=== PATIENT | female | born 1935 | race Caucasian/White ===

== ENCOUNTER 2017-04-14 14:42 | Inpatient (IN) | payer MEDICARE, BC ==
[~2017-04-14] VITALS: Ht 162.6 cm; Wt 70.3 kg
[2017-04-14 15:40] LABS: BASO # 0.1 x10^3/uL (0.0-0.2); BASO % 1 % (0-3); EOS # 0.3 x10^3/uL (0.0-0.7); EOS % 4 % (0-3); HEMATOCRIT 38.5 % (36.0-47.0); HEMOGLOBIN 13.2 g/dL (12.0-15.5); LYMPH % 29 % (24-48); MEAN CORPUSCULAR HEMOGLOBIN 29 pg (25-35); MEAN CORPUSCULAR HGB CONC 34 g/dL (31-37); MEAN CORPUSCULAR VOLUME 86 fL (79-100); MONO # 0.4 x10^3/uL (0.0-1.1); MONO % 6 % (0-9); NEUT # 4.1 x10^3uL (1.8-7.7); NEUT % 60 % (31-73); PLATELET COUNT 187 x10^3/uL (140-400); RED BLOOD COUNT 4.49 x10^6/uL (3.50-5.40); WHITE BLOOD COUNT 6.8 x10^3/uL (4.0-11.0)
[2017-04-14 15:44] LABS: BILIRUBIN,URINE NEG (NEG); CLARITY,URINE TURBID; COLOR,URINE YELLOW; GLUCOSE,URINE NEG (NEG)
[2017-04-14 15:45] LABS: BACTERIA,URINE MOD /HPF (0-FEW); NITRITE,URINE NEG (NEG); RBC,URINE 20-40 /HPF (0-2); SQUAMOUS EPITHELIAL CELL,UR FEW /LPF; UROBILINOGEN,URINE 0.2 mg/dL (0.2 mg/dL); WBC,URINE >40 /HPF (0-4)
[2017-04-14 15:48] LABS: ALBUMIN 3.3 g/dL (3.4-5.0); ALBUMIN/GLOBULIN RATIO 1.1 (1.0-1.7); CREATININE 1.6 mg/dL (0.6-1.0); GFR 30.8; MAGNESIUM 1.7 mg/dL (1.8-2.4); POTASSIUM 3.7 mmol/L (3.5-5.1); TOTAL BILIRUBIN 0.7 mg/dL (0.2-1.0); TOTAL PROTEIN 6.4 g/dL (6.4-8.2)
--- NOTE | 2017-04-14 15:48 | EKG ---
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
[2017-04-14] MEDS ORDERED: CIPROFLOXACIN HCL 500 MG TABLET PO ONE (17:15)
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
[2017-04-14] MEDS ORDERED: BENA40TA2 PO (22:25)
[2017-04-14] MEDS ORDERED: LOPE2CAP88 PO (22:25)
[2017-04-14] MEDS ORDERED: INSU100I17 SQ (22:25)
[2017-04-14] MEDS ORDERED: CELE100C PO (22:25)
[2017-04-14] MEDS ORDERED: INSU100I13 SQ (22:25)
[2017-04-14] MEDS ORDERED: ASPI325T11 PO (22:25)
[2017-04-14] MEDS ORDERED: NYST15PO9 TP (22:25)
[2017-04-14] MEDS ORDERED: HYDR12.58 PO (22:25)
[2017-04-14] MEDS ORDERED: AMLO10TA2 PO (22:25)
[2017-04-14] MEDS ORDERED: ATEN50TA PO (22:25)
[2017-04-14] MEDS ORDERED: DONE10TA7 PO (22:25)
[2017-04-14] MEDS ORDERED: MAG HYDROX/AL HYDROX/SIMETH 30 ML ORAL.SUSP PO PRN (23:00)
[2017-04-14] MEDS ORDERED: METHYL SALICYLATE/MENTHOL TOPICAL OINTMENT 29GM TUBE. TP PRN (23:00)
[2017-04-14] MEDS ORDERED: ACETAMINOPHEN 325 MG TABLET PO PRN (23:00)
[2017-04-14] MEDS ORDERED: MAGNESIUM HYDROXIDE 2,400 MG/30 ML ORAL.SUSP. PO PRN (23:00)
[2017-04-14 23:15] VITALS: BP 172/88
[2017-04-15] MEDS: CIPROFLOXACIN HCL 250 MG TABLET PO SCH ×2 (05:29→17:40)
[2017-04-15 06:18] VITALS: BP 177/75
[2017-04-15] MEDS ORDERED: LOPERAMIDE 2 MG CAPSULE PO PRN (06:45)
[2017-04-15] MEDS ORDERED: NYSTATIN TOPICAL POWDER 15GM BOTTLE. TP PRN (06:45)
[2017-04-15] MEDS: ATENOLOL 50 MG TABLET PO SCH ×2 (09:00→19:33)
[2017-04-15] MEDS ORDERED: CELECOXIB 100 MG CAPSULE PO SCH (09:00)
[2017-04-15] MEDS: INSULIN ASPART 300 UNITS/3 ML INSULN.PEN SQ SCH ×4 (09:02→19:48)
[2017-04-15 09:21] VITALS: BP 155/61
[2017-04-15] MEDS: amLODIPine BESYLATE 10 MG TABLET PO SCH (09:27)
[2017-04-15] MEDS: LISINOPRIL 20 MG TABLET PO SCH (09:27)
[2017-04-15] MEDS: hydroCHLOROthiazide 12.5 MG CAPSULE PO SCH (09:27)
[2017-04-15] MEDS: ASPIRIN ENTERIC COATED 325 MG TABLET.DR. PO SCH (09:27)
[2017-04-15] MEDS: LACTOBACILLUS RHAMNOSUS GG 1 CAPSULE. PO SCH ×2 (09:28→19:32)
[2017-04-15 16:10] VITALS: BP 184/74
[2017-04-15] MEDS: cloNIDine TTS-1 1 PATCH PATCH TD SCH (16:22)
[2017-04-15] MEDS ORDERED: DEXTROSE 50% 25 GM / 50ML DISP.SYRIN. IV PRN (17:00)
--- NOTE | 2017-04-15 19:05 | PDOC ---
Exam Note: Amaury Note: Please also refer to the separate dictated note~for this date of service dictated separately.~Patient seen individually. Discussed the patient with Nursing staff reviewed the chart.~Reviewed interim history and current functioning. Reviewed vital signs,~Labs/ Radiology~and current medications noted below. Continue current treatment with the changes noted in the dictated addendum note Assessment: Vital Signs: Vital Signs Date Time Temp Pulse Resp B/P (MAP) Pulse Ox O2 Delivery O2 Flow Rate FiO2 04/15/17 16:10 98.0 57 20 184/74 (110) 98 04/14/17 14:55 Room Air I&O Intake and Output 04/15/17 06:59 # Voids 1 # Bowel Movements 1 Labs: Laboratory Tests Test 04/15/17 08:58 04/15/17 11:28 04/15/17 15:55 Glucose (Fingerstick) 241 mg/dL (70-99) H 213 mg/dL (70-99) H 275 mg/dL (70-99) H Current Medications: Meds: Current Medications Ciprofloxacin (Cipro) 500 mg 1X ONCE PO Last administered on 04/14/17at 17:25; Start 04/14/17 at 17:15; Stop 04/14/17 at 17:16; Status DC Donepezil HCl (Aricept) 10 mg HS PO ; Start 04/15/17 at 21:00 Acetaminophen (Tylenol) 650 mg PRN Q6HRS PRN PO PAIN / TEMP; Start 04/14/17 at 23:00 Multi-Ingredient Ointment (Analgesic [place]) 1 gricel PRN QID PRN TP MUSCLE PAIN; Start 04/14/17 at 23:00 Al Hydroxide/Mg Hydroxide (Mylanta Plus Xs) 15 ml PRN AFTMEALHC PRN PO DYSPEPSIA; Start 04/14/17 at 23:00 Magnesium Hydroxide (Milk Of Magnesia) 2,400 mg PRN QHS PRN PO CONSTIPATION; Start 04/14/17 at 23:00 Ciprofloxacin (Cipro) 250 mg BID66 PO Last administered on 04/15/17at 17:40; Start 04/15/17 at 06:00; Stop 04/20/17 at 05:59 Lactobacillus Rhamnosus (Culturelle) 1 cap BID PO Last administered on at 09:28; Start 04/15/17 at 09:00 Amlodipine Besylate (Norvasc) 10 mg DAILY PO Last administered on 04/15/17at 09: 27; Start 04/15/17 at 09:00 Aspirin (Aspirin Enteric Coated) 325 mg DAILY PO Last administered on 04/15/17at 09:27; Start 04/15/17 at 09:00 Atenolol (Tenormin) 50 mg BID PO ; Start 04/15/17 at 09:00 Celecoxib (CeleBREX) 100 mg DAILY PO Last administered on 04/15/17at 09:30; Start 04/15/17 at 09:00; Stop 04/15/17 at 15:47; Status DC Insulin Aspart (NovoLOG) 6 units TIDWMEALS SQ Last administered on 04/15/17at 12: 18; Start 04/15/17 at 08:00; Stop 04/15/17 at 16:59; Status DC Loperamide HCl (Imodium) 2 mg PRN Q6HRS PRN PO DIARRHEA; Start 04/15/17 at 06:45 Nystatin (Nystop) 1 gricel PRN Q12HR PRN TP excoriation; Start 04/15/17 at 06:45 Lisinopril (Prinivil) 40 mg DAILY PO Last administered on 04/15/17at 09:27; Start 04/15/17 at 09:00 Hydrochlorothiazide (Microzide) 12.5 mg DAILY PO Last administered on 04/15/17at 09:27; Start 04/15/17 at 09:00 Insulin Detemir (Levemir) 45 units QHS SQ ; Start 04/15/17 at 21:00 Clonidine HCl (Catapres Tts-1) 1 patch WEEKLY TD Last administered on 04/15/17at 16:22; Start 04/15/17 at 16:00 Insulin Aspart (NovoLOG) 8 units TIDWMEALS SQ Last administered on 04/15/17at 17: 16; Start 04/15/17 at 17:00 Insulin Aspart (NovoLOG) 0-5 UNITS QIDACHS SQ ; Start 04/15/17 at 21:00 Dextrose 12.5 gm PRN Q15MIN PRN IV SEE COMMENTS; Start 04/15/17 at 17:00 Sertraline HCl (Zoloft) 25 mg DAILY PO ; Start 04/16/17 at 09:00 Mirtazapine (Remeron) 7.5 mg QHS PO ; Start 04/15/17 at 21:00 Active Scripts Active Reported Nystatin 15 Gm Powder 1 Gricel TP PRN Q12HR PRN Novolog Flexpen (Insulin Aspart) 100 Unit/1 Ml Insuln.pen 6 Unit SQ TIDWMEALS Lantus Solostar (Insulin Glargine,Hum.rec.anlog) 100 Unit/1 Ml Insuln.pen 45 Unit SQ HS Imodium A-D (Loperamide HCl) 2 Mg Capsule 2 Mg PO PRN Q6HRS PRN Hydrochlorothiazide Tablet (Hydrochlorothiazide) 12.5 Mg Tablet 12.5 Mg PO DAILY Donepezil Hcl 10 Mg Tablet 10 Mg PO HS Celebrex (Celecoxib) 100 Mg Capsule 100 Mg PO DAILY Benazepril Hcl 40 Mg Tablet 40 Mg PO DAILY Atenolol 50 Mg Tablet 50 Mg PO BID Aspirin Ec (Aspirin) 325 Mg Tablet.dr 325 Mg PO DAILY Amlodipine Besylate 10 Mg Tablet 10 Mg PO DAILY I have reviewed the current psychotropics carefully including drug interactions. Risk benefit ratio favors no change other than as noted in my dictated progress note. Diagnosis: Problems: (1) Anxiety disorder (2) Dementia in Alzheimer's disease with delusions (3) Dementia in Alzheimer's disease with depression (4) Dementia, vascular, with depression (5) Dementia, vascular, with delusions (6) Impulse control disorder ROSS CONDE MD Apr 15, 2017 19:05
[2017-04-15] MEDS: MIRTAZAPINE 7.5 MG TABLET. PO SCH (19:35)
[2017-04-15] MEDS: DONEPEZIL HCL 10 MG TABLET PO SCH (19:43)
[2017-04-15] MEDS ORDERED: INSULIN ASPART 300 UNITS/3 ML INSULN.PEN SQ ONE (19:45)
[2017-04-15] MEDS: INSULIN DETEMIR 300 UNITS/3 ML INSULN.PEN. SQ SCH (19:47)
[2017-04-15 19:54] LABS: THYROID STIM HORMONE (TSH) 3.46 uIU/mL (0.358-3.740)
--- NOTE | 2017-04-15 20:09 | PDOC ---
Exam Note: Amaury Note: Please also refer to the separate dictated note~for this date of service dictated separately.~Patient seen individually. Discussed the patient with Nursing staff reviewed the chart.~Reviewed interim history and current functioning. Reviewed vital signs,~Labs/ Radiology~and current medications noted below. Continue current treatment with the changes noted in the dictated addendum note Assessment: Vital Signs: Vital Signs Date Time Temp Pulse Resp B/P (MAP) Pulse Ox O2 Delivery O2 Flow Rate FiO2 04/15/17 19:33 57 184/74 04/15/17 16:10 98.0 20 98 04/14/17 14:55 Room Air I&O Intake and Output 04/15/17 07:00 # Voids 1 # Bowel Movements 1 Labs: Laboratory Tests Test 04/15/17 08:58 04/15/17 11:28 04/15/17 15:55 04/15/17 19:08 Glucose (Fingerstick) 241 mg/dL (70-99) H 213 mg/dL (70-99) H 275 mg/dL (70-99) H 278 mg/dL (70-99) H Current Medications: Meds: Current Medications Ciprofloxacin (Cipro) 500 mg 1X ONCE PO Last administered on 04/14/17at 17:25; Start 04/14/17 at 17:15; Stop 04/14/17 at 17:16; Status DC Donepezil HCl (Aricept) 10 mg HS PO Last administered on 04/15/17at 19:43; Start 04/15/17 at 21:00 Acetaminophen (Tylenol) 650 mg PRN Q6HRS PRN PO PAIN / TEMP; Start 04/14/17 at 23:00 Multi-Ingredient Ointment (Analgesic [place]) 1 gricel PRN QID PRN TP MUSCLE PAIN; Start 04/14/17 at 23:00 Al Hydroxide/Mg Hydroxide (Mylanta Plus Xs) 15 ml PRN AFTMEALHC PRN PO DYSPEPSIA; Start 04/14/17 at 23:00 Magnesium Hydroxide (Milk Of Magnesia) 2,400 mg PRN QHS PRN PO CONSTIPATION; Start 04/14/17 at 23:00 Ciprofloxacin (Cipro) 250 mg BID66 PO Last administered on 04/15/17at 17:40; Start 04/15/17 at 06:00; Stop 04/20/17 at 05:59 Lactobacillus Rhamnosus (Culturelle) 1 cap BID PO Last administered on at 19:32; Start 04/15/17 at 09:00 Amlodipine Besylate (Norvasc) 10 mg DAILY PO Last administered on 04/15/17at 09: 27; Start 04/15/17 at 09:00 Aspirin (Aspirin Enteric Coated) 325 mg DAILY PO Last administered on 04/15/17 09:27; Start 04/15/17 at 09:00 Atenolol (Tenormin) 50 mg BID PO Last administered on 04/15/17 19:33; Start 04/15/17 at 09:00 Celecoxib (CeleBREX) 100 mg DAILY PO Last administered on 04/15/17 09:30; Start 04/15/17 at 09:00; Stop 04/15/17 at 15:47; Status DC Insulin Aspart (NovoLOG) 6 units TIDWMEALS SQ Last administered on 04/15/17 12: 18; Start 04/15/17 at 08:00; Stop 04/15/17 at 16:59; Status DC Loperamide HCl (Imodium) 2 mg PRN Q6HRS PRN PO DIARRHEA; Start 04/15/17 at 06:45 Nystatin (Nystop) 1 gricel PRN Q12HR PRN TP excoriation; Start 04/15/17 at 06:45 Lisinopril (Prinivil) 40 mg DAILY PO Last administered on 04/15/17at 09:27; Start 04/15/17 at 09:00 Hydrochlorothiazide (Microzide) 12.5 mg DAILY PO Last administered on 04/15/17 09:27; Start 04/15/17 at 09:00 Insulin Detemir (Levemir) 45 units QHS SQ Last administered on 04/15/17at 19:47; Start 04/15/17 at 21:00 Clonidine HCl (Catapres Tts-1) 1 patch WEEKLY TD Last administered on 04/15/17 16:22; Start 04/15/17 at 16:00 Insulin Aspart (NovoLOG) 8 units TIDWMEALS SQ Last administered on 04/15/17 17: 16; Start 04/15/17 at 17:00 Insulin Aspart (NovoLOG) 0-5 UNITS QIDACHS SQ ; Start 04/15/17 at 21:00 Dextrose 12.5 gm PRN Q15MIN PRN IV SEE COMMENTS; Start 04/15/17 at 17:00 Sertraline HCl (Zoloft) 25 mg DAILY PO ; Start 04/16/17 at 09:00 Mirtazapine (Remeron) 7.5 mg QHS PO Last administered on 04/15/17at 19:35; Start 04/15/17 at 21:00 Insulin Aspart (NovoLOG) 15 units 1X ONCE SQ Last administered on 04/15/17at 19: 45; Start 04/15/17 at 19:45; Stop 04/15/17 at 19:46; Status DC Active Scripts Active Reported Nystatin 15 Gm Powder 1 Gricel TP PRN Q12HR PRN Novolog Flexpen (Insulin Aspart) 100 Unit/1 Ml Insuln.pen 6 Unit SQ TIDWMEALS Lantus Solostar (Insulin Glargine,Hum.rec.anlog) 100 Unit/1 Ml Insuln.pen 45 Unit SQ HS Imodium A-D (Loperamide HCl) 2 Mg Capsule 2 Mg PO PRN Q6HRS PRN Hydrochlorothiazide Tablet (Hydrochlorothiazide) 12.5 Mg Tablet 12.5 Mg PO DAILY Donepezil Hcl 10 Mg Tablet 10 Mg PO HS Celebrex (Celecoxib) 100 Mg Capsule 100 Mg PO DAILY Benazepril Hcl 40 Mg Tablet 40 Mg PO DAILY Atenolol 50 Mg Tablet 50 Mg PO BID Aspirin Ec (Aspirin) 325 Mg Tablet. 325 Mg PO DAILY Amlodipine Besylate 10 Mg Tablet 10 Mg PO DAILY I have reviewed the current psychotropics carefully including drug interactions. Risk benefit ratio favors no change other than as noted in my dictated progress note. Diagnosis: Problems: (1) Dementia (2) Anxiety disorder (3) Impulse control disorder (4) Dementia, vascular, with depression (5) Dementia, vascular, with delusions (6) Dementia in Alzheimer's disease with depression (7) Dementia in Alzheimer's disease with delusions ROSS CONDE MD Apr 15, 2017 20:09
[2017-04-15 20:11] LABS: T3 TOTAL 105 ng/dL (71-180)
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
[2017-04-16 03:13] LABS: HEMOGLOBIN A1C 7.6 % (4.8-5.6)
[2017-04-16] MEDS: CIPROFLOXACIN HCL 250 MG TABLET PO SCH ×2 (05:30→17:41)
[2017-04-16 06:22] VITALS: BP 165/53
[2017-04-16] MEDS: INSULIN ASPART 300 UNITS/3 ML INSULN.PEN SQ SCH ×7 (07:30→19:25)
[2017-04-16] MEDS: ASPIRIN ENTERIC COATED 325 MG TABLET.DR. PO SCH (08:51)
[2017-04-16 08:52] VITALS: BP 133/73
[2017-04-16] MEDS: LACTOBACILLUS RHAMNOSUS GG 1 CAPSULE. PO SCH ×2 (08:52→19:08)
[2017-04-16] MEDS: SERTRALINE 25 MG TABLET. PO SCH (08:52)
[2017-04-16] MEDS: LISINOPRIL 20 MG TABLET PO SCH (08:53)
[2017-04-16] MEDS: amLODIPine BESYLATE 10 MG TABLET PO SCH (08:53)
[2017-04-16] MEDS: hydroCHLOROthiazide 12.5 MG CAPSULE PO SCH (08:54)
[2017-04-16] MEDS: ATENOLOL 50 MG TABLET PO SCH ×2 (08:54→19:13)
[2017-04-16 16:15] VITALS: BP 177/72
[2017-04-16] MEDS: DONEPEZIL HCL 10 MG TABLET PO SCH (19:08)
[2017-04-16] MEDS: MIRTAZAPINE 7.5 MG TABLET. PO SCH (19:13)
[2017-04-16] MEDS: INSULIN DETEMIR 300 UNITS/3 ML INSULN.PEN. SQ SCH (19:20)
--- NOTE | 2017-04-16 19:50 | PDOC ---
Exam Note: Amaury Note: Please also refer to the separate dictated note~for this date of service dictated separately.~Patient seen individually. Discussed the patient with Nursing staff reviewed the chart.~Reviewed interim history and current functioning. Reviewed vital signs,~Labs/ Radiology~and current medications noted below. Continue current treatment with the changes noted in the dictated addendum note Assessment: Vital Signs: Vital Signs Date Time Temp Pulse Resp B/P (MAP) Pulse Ox O2 Delivery O2 Flow Rate FiO2 04/16/17 19:13 56 177/72 04/16/17 16:15 98.0 20 96 04/14/17 14:55 Room Air I&O Intake and Output 04/16/17 07:00 Intake Total 1680 ml Balance 1680 ml Intake Oral 1680 ml Labs: Laboratory Tests Test 04/16/17 07:14 04/16/17 11:29 04/16/17 17:15 04/16/17 19:10 Glucose (Fingerstick) 102 mg/dL (70-99) H 77 mg/dL (70-99) 98 mg/dL (70-99) 141 mg/dL (70-99) H Current Medications: Meds: Current Medications Ciprofloxacin (Cipro) 500 mg 1X ONCE PO Last administered on 04/14/17at 17:25; Start 04/14/17 at 17:15; Stop 04/14/17 at 17:16; Status DC Donepezil HCl (Aricept) 10 mg HS PO Last administered on 04/16/17at 19:08; Start 04/15/17 at 21:00 Acetaminophen (Tylenol) 650 mg PRN Q6HRS PRN PO PAIN / TEMP; Start 04/14/17 at 23:00 Multi-Ingredient Ointment (Analgesic [place]) 1 gricel PRN QID PRN TP MUSCLE PAIN; Start 04/14/17 at 23:00 Al Hydroxide/Mg Hydroxide (Mylanta Plus Xs) 15 ml PRN AFTMEALHC PRN PO DYSPEPSIA; Start 04/14/17 at 23:00 Magnesium Hydroxide (Milk Of Magnesia) 2,400 mg PRN QHS PRN PO CONSTIPATION; Start 04/14/17 at 23:00 Ciprofloxacin (Cipro) 250 mg BID66 PO Last administered on 04/16/17at 17:41; Start 04/15/17 at 06:00; Stop 04/20/17 at 05:59 Lactobacillus Rhamnosus (Culturelle) 1 cap BID PO Last administered on at 19:08; Start 04/15/17 at 09:00 Amlodipine Besylate (Norvasc) 10 mg DAILY PO Last administered on 04/16/17at 08: 53; Start 04/15/17 at 09:00 Aspirin (Aspirin Enteric Coated) 325 mg DAILY PO Last administered on at 08:51; Start 04/15/17 at 09:00 Atenolol (Tenormin) 50 mg BID PO Last administered on 04/16/17 19:13; Start at 09:00 Celecoxib (CeleBREX) 100 mg DAILY PO Last administered on 04/15/17at 09:30; Start 04/15/17 at 09:00; Stop 04/15/17 at 15:47; Status DC Insulin Aspart (NovoLOG) 6 units TIDWMEALS SQ Last administered on 04/15/17at 12: 18; Start 04/15/17 at 08:00; Stop 04/15/17 at 16:59; Status DC Loperamide HCl (Imodium) 2 mg PRN Q6HRS PRN PO DIARRHEA; Start 04/15/17 at 06:45 Nystatin (Nystop) 1 gricel PRN Q12HR PRN TP excoriation; Start 04/15/17 at 06:45 Lisinopril (Prinivil) 40 mg DAILY PO Last administered on 04/16/17at 08:53; Start 04/15/17 at 09:00 Hydrochlorothiazide (Microzide) 12.5 mg DAILY PO Last administered on at 08:54; Start 04/15/17 at 09:00; Stop 04/16/17 at 17:04; Status DC Insulin Detemir (Levemir) 45 units QHS SQ Last administered on 04/16/17 19:20 ; Start 04/15/17 at 21:00 Clonidine HCl (Catapres Tts-1) 1 patch WEEKLY TD Last administered on 04/15/17 16:22; Start 04/15/17 at 16:00 Insulin Aspart (NovoLOG) 8 units TIDWMEALS SQ Last administered on 04/16/17at 17 :22; Start 04/15/17 at 17:00 Insulin Aspart (NovoLOG) 0-5 UNITS QIDACHS SQ ; Start 04/15/17 at 21:00 Dextrose 12.5 gm PRN Q15MIN PRN IV SEE COMMENTS; Start 04/15/17 at 17:00 Sertraline HCl (Zoloft) 25 mg DAILY PO Last administered on 04/16/17at 08:52; Start 04/16/17 at 09:00 Mirtazapine (Remeron) 7.5 mg QHS PO Last administered on 04/16/17at 19:13; Start 04/15/17 at 21:00 Insulin Aspart (NovoLOG) 15 units 1X ONCE SQ Last administered on 04/15/17at 19: 45; Start 04/15/17 at 19:45; Stop 04/15/17 at 19:46; Status DC Furosemide (Lasix) 20 mg DAILY PO ; Start 04/17/17 at 09:00 Active Scripts Active Reported Nystatin 15 Gm Powder 1 Gricel TP PRN Q12HR PRN Novolog Flexpen (Insulin Aspart) 100 Unit/1 Ml Insuln.pen 6 Unit SQ TIDWMEALS Lantus Solostar (Insulin Glargine,Hum.rec.anlog) 100 Unit/1 Ml Insuln.pen 45 Unit SQ HS Imodium A-D (Loperamide HCl) 2 Mg Capsule 2 Mg PO PRN Q6HRS PRN Hydrochlorothiazide Tablet (Hydrochlorothiazide) 12.5 Mg Tablet 12.5 Mg PO DAILY Donepezil Hcl 10 Mg Tablet 10 Mg PO HS Celebrex (Celecoxib) 100 Mg Capsule 100 Mg PO DAILY Benazepril Hcl 40 Mg Tablet 40 Mg PO DAILY Atenolol 50 Mg Tablet 50 Mg PO BID Aspirin Ec (Aspirin) 325 Mg Tablet. 325 Mg PO DAILY Amlodipine Besylate 10 Mg Tablet 10 Mg PO DAILY I have reviewed the current psychotropics carefully including drug interactions. Risk benefit ratio favors no change other than as noted in my dictated progress note. Diagnosis: Problems: (1) Dementia (2) Anxiety disorder (3) Impulse control disorder (4) Dementia, vascular, with depression (5) Dementia, vascular, with delusions (6) Dementia in Alzheimer's disease with depression (7) Dementia in Alzheimer's disease with delusions ROSS CONDE MD Apr 16, 2017 19:50
[2017-04-17] MEDS: CIPROFLOXACIN HCL 250 MG TABLET PO SCH ×2 (05:51→18:08)
[2017-04-17 06:01] VITALS: BP 128/71
[2017-04-17] MEDS: INSULIN ASPART 300 UNITS/3 ML INSULN.PEN SQ SCH ×7 (07:30→19:40)
[2017-04-17] MEDS: LACTOBACILLUS RHAMNOSUS GG 1 CAPSULE. PO SCH ×2 (08:18→19:37)
[2017-04-17] MEDS: amLODIPine BESYLATE 10 MG TABLET PO SCH (08:19)
[2017-04-17] MEDS: ATENOLOL 50 MG TABLET PO SCH ×2 (08:20→19:38)
[2017-04-17] MEDS: SERTRALINE 25 MG TABLET. PO SCH (08:20)
[2017-04-17] MEDS: ASPIRIN ENTERIC COATED 325 MG TABLET.DR. PO SCH (08:20)
[2017-04-17] MEDS: LISINOPRIL 20 MG TABLET PO SCH (08:20)
[2017-04-17] MEDS: FUROSEMIDE 20 MG TABLET PO SCH (08:26)
[2017-04-17 15:49] VITALS: BP 134/66
[2017-04-17] MEDS: DONEPEZIL HCL 10 MG TABLET PO SCH (19:37)
[2017-04-17] MEDS: MIRTAZAPINE 7.5 MG TABLET. PO SCH (19:38)
[2017-04-17] MEDS: QUEtiapine 25 MG TABLET. PO SCH (19:38)
[2017-04-17] MEDS: INSULIN DETEMIR 300 UNITS/3 ML INSULN.PEN. SQ SCH (19:40)
--- NOTE | 2017-04-17 19:59 | PDOC ---
Exam Note: Amaury Note: Please also refer to the separate dictated note~for this date of service dictated separately.~Patient seen individually. Discussed the patient with Nursing staff reviewed the chart.~Reviewed interim history and current functioning. Reviewed vital signs,~Labs/ Radiology~and current medications noted below. Continue current treatment with the changes noted in the dictated addendum note Assessment: Vital Signs: Vital Signs Date Time Temp Pulse Resp B/P (MAP) Pulse Ox O2 Delivery O2 Flow Rate FiO2 04/17/17 19:38 66 134/66 04/17/17 15:49 98.4 20 98 04/14/17 14:55 Room Air I&O Intake and Output 04/17/17 07:00 Intake Total 1080 ml Balance 1080 ml Intake Oral 1080 ml # Bowel Movements 1 Labs: Laboratory Tests Test 04/17/17 07:10 04/17/17 11:15 04/17/17 16:29 Glucose (Fingerstick) 119 mg/dL (70-99) H 104 mg/dL (70-99) H 151 mg/dL (70-99) H Current Medications: Meds: Current Medications Ciprofloxacin (Cipro) 500 mg 1X ONCE PO Last administered on 04/14/17at 17:25; Start 04/14/17 at 17:15; Stop 04/14/17 at 17:16; Status DC Donepezil HCl (Aricept) 10 mg HS PO Last administered on 04/17/17at 19:37; Start 04/15/17 at 21:00 Acetaminophen (Tylenol) 650 mg PRN Q6HRS PRN PO PAIN / TEMP; Start 04/14/17 at 23:00 Multi-Ingredient Ointment (Analgesic [place]) 1 gricel PRN QID PRN TP MUSCLE PAIN; Start 04/14/17 at 23:00 Al Hydroxide/Mg Hydroxide (Mylanta Plus Xs) 15 ml PRN AFTMEALHC PRN PO DYSPEPSIA; Start 04/14/17 at 23:00 Magnesium Hydroxide (Milk Of Magnesia) 2,400 mg PRN QHS PRN PO CONSTIPATION; Start 04/14/17 at 23:00 Ciprofloxacin (Cipro) 250 mg BID66 PO Last administered on 04/17/17at 18:08; Start 04/15/17 at 06:00; Stop 04/20/17 at 05:59 Lactobacillus Rhamnosus (Culturelle) 1 cap BID PO Last administered on at 19:37; Start 04/15/17 at 09:00 Amlodipine Besylate (Norvasc) 10 mg DAILY PO Last administered on 04/17/17at 08: 19; Start 04/15/17 at 09:00 Aspirin (Aspirin Enteric Coated) 325 mg DAILY PO Last administered on at 08:20; Start 04/15/17 at 09:00 Atenolol (Tenormin) 50 mg BID PO Last administered on 04/17/17at 19:38; Start at 09:00 Celecoxib (CeleBREX) 100 mg DAILY PO Last administered on 04/15/17at 09:30; Start 04/15/17 at 09:00; Stop 04/15/17 at 15:47; Status DC Insulin Aspart (NovoLOG) 6 units TIDWMEALS SQ Last administered on 04/15/17at 12: 18; Start 04/15/17 at 08:00; Stop 04/15/17 at 16:59; Status DC Loperamide HCl (Imodium) 2 mg PRN Q6HRS PRN PO DIARRHEA; Start 04/15/17 at 06:45 Nystatin (Nystop) 1 gricel PRN Q12HR PRN TP excoriation; Start 04/15/17 at 06:45 Lisinopril (Prinivil) 40 mg DAILY PO Last administered on 04/17/17at 08:20; Start 04/15/17 at 09:00 Hydrochlorothiazide (Microzide) 12.5 mg DAILY PO Last administered on at 08:54; Start 04/15/17 at 09:00; Stop 04/16/17 at 17:04; Status DC Insulin Detemir (Levemir) 45 units QHS SQ Last administered on 04/17/17at 19:40 ; Start 04/15/17 at 21:00 Clonidine HCl (Catapres Tts-1) 1 patch WEEKLY TD Last administered on 04/15/17at 16:22; Start 04/15/17 at 16:00 Insulin Aspart (NovoLOG) 8 units TIDWMEALS SQ Last administered on 04/17/17at 17 :44; Start 04/15/17 at 17:00 Insulin Aspart (NovoLOG) 0-5 UNITS QIDACHS SQ Last administered on 04/17/17at 17 :43; Start 04/15/17 at 21:00 Dextrose 12.5 gm PRN Q15MIN PRN IV SEE COMMENTS; Start 04/15/17 at 17:00 Sertraline HCl (Zoloft) 25 mg DAILY PO Last administered on 04/17/17at 08:20; Start 04/16/17 at 09:00 Mirtazapine (Remeron) 7.5 mg QHS PO Last administered on 04/17/17at 19:38; Start 04/15/17 at 21:00 Insulin Aspart (NovoLOG) 15 units 1X ONCE SQ Last administered on 04/15/17at 19: 45; Start 04/15/17 at 19:45; Stop 04/15/17 at 19:46; Status DC Furosemide (Lasix) 20 mg DAILY PO Last administered on 04/17/17at 08:26; Start 04/17/17 at 09:00 Quetiapine Fumarate (SEROquel) 25 mg QHS PO Last administered on 04/17/17at 19: 38; Start 04/17/17 at 21:00 Active Scripts Active Reported Nystatin 15 Gm Powder 1 Gricel TP PRN Q12HR PRN Novolog Flexpen (Insulin Aspart) 100 Unit/1 Ml Insuln.pen 6 Unit SQ TIDWMEALS Lantus Solostar (Insulin Glargine,Hum.rec.anlog) 100 Unit/1 Ml Insuln.pen 45 Unit SQ HS Imodium A-D (Loperamide HCl) 2 Mg Capsule 2 Mg PO PRN Q6HRS PRN Hydrochlorothiazide Tablet (Hydrochlorothiazide) 12.5 Mg Tablet 12.5 Mg PO DAILY Donepezil Hcl 10 Mg Tablet 10 Mg PO HS Celebrex (Celecoxib) 100 Mg Capsule 100 Mg PO DAILY Benazepril Hcl 40 Mg Tablet 40 Mg PO DAILY Atenolol 50 Mg Tablet 50 Mg PO BID Aspirin Ec (Aspirin) 325 Mg Tablet. 325 Mg PO DAILY Amlodipine Besylate 10 Mg Tablet 10 Mg PO DAILY I have reviewed the current psychotropics carefully including drug interactions. Risk benefit ratio favors no change other than as noted in my dictated progress note. Diagnosis: Problems: (1) Dementia (2) Medical clearance for psychiatric admission (3) Anxiety disorder (4) Impulse control disorder (5) Dementia, vascular, with depression (6) Dementia, vascular, with delusions (7) Dementia in Alzheimer's disease with depression (8) Dementia in Alzheimer's disease with delusions ROSS CONDE MD Apr 17, 2017 19:59
[2017-04-18] MEDS: CIPROFLOXACIN HCL 250 MG TABLET PO SCH ×2 (06:24→18:11)
[2017-04-18 06:26] VITALS: BP 121/67
[2017-04-18] MEDS: INSULIN ASPART 300 UNITS/3 ML INSULN.PEN SQ SCH ×7 (07:24→19:27)
[2017-04-18] MEDS ORDERED: DEXTROSE ORAL GEL 15 GM TUBE. PO PRN (07:30)
[2017-04-18] MEDS: LACTOBACILLUS RHAMNOSUS GG 1 CAPSULE. PO SCH ×2 (08:06→19:22)
[2017-04-18] MEDS: SERTRALINE 25 MG TABLET. PO SCH (08:07)
[2017-04-18] MEDS: FUROSEMIDE 20 MG TABLET PO SCH (08:07)
[2017-04-18] MEDS: ASPIRIN ENTERIC COATED 325 MG TABLET.DR. PO SCH (08:07)
[2017-04-18] MEDS: amLODIPine BESYLATE 10 MG TABLET PO SCH (08:15)
[2017-04-18] MEDS: LISINOPRIL 20 MG TABLET PO SCH (08:16)
[2017-04-18] MEDS: ATENOLOL 50 MG TABLET PO SCH ×2 (08:16→19:22)
[2017-04-18 15:57] VITALS: BP 97/58
[2017-04-18] MEDS: QUEtiapine 25 MG TABLET. PO SCH (19:22)
[2017-04-18] MEDS: DONEPEZIL HCL 10 MG TABLET PO SCH (19:23)
[2017-04-18] MEDS: MIRTAZAPINE 7.5 MG TABLET. PO SCH (19:23)
[2017-04-18] MEDS: INSULIN DETEMIR 300 UNITS/3 ML INSULN.PEN. SQ SCH (19:25)
--- NOTE | 2017-04-18 20:00 | PDOC ---
Exam Note: Amaury Note: Please also refer to the separate dictated note~for this date of service dictated separately.~Patient seen individually. Discussed the patient with Nursing staff reviewed the chart.~Reviewed interim history and current functioning. Reviewed vital signs,~Labs/ Radiology~and current medications noted below. Continue current treatment with the changes noted in the dictated addendum note Assessment: Vital Signs: Vital Signs Date Time Temp Pulse Resp B/P (MAP) Pulse Ox O2 Delivery O2 Flow Rate FiO2 04/18/17 19:22 53 97/58 04/18/17 15:57 97.9 19 95 04/14/17 14:55 Room Air I&O Intake and Output 04/18/17 07:00 Intake Total 1320 ml Balance 1320 ml Intake Oral 1320 ml Labs: Laboratory Tests Test 04/18/17 07:19 04/18/17 07:58 04/18/17 08:01 04/18/17 08:51 Glucose (Fingerstick) 45 mg/dL (70-99) L 46 mg/dL (70-99) L 43 mg/dL (70-99) L 132 mg/dL (70-99) H Test 04/18/17 12:09 04/18/17 16:26 04/18/17 18:56 Glucose (Fingerstick) 152 mg/dL (70-99) H 137 mg/dL (70-99) H 254 mg/dL (70-99) H Current Medications: Meds: Current Medications Ciprofloxacin (Cipro) 500 mg 1X ONCE PO Last administered on 04/14/17at 17:25; Start 04/14/17 at 17:15; Stop 04/14/17 at 17:16; Status DC Donepezil HCl (Aricept) 10 mg HS PO Last administered on 04/18/17at 19:23; Start 04/15/17 at 21:00 Acetaminophen (Tylenol) 650 mg PRN Q6HRS PRN PO PAIN / TEMP; Start 04/14/17 at 23:00 Multi-Ingredient Ointment (Analgesic [place]) 1 gricel PRN QID PRN TP MUSCLE PAIN; Start 04/14/17 at 23:00 Al Hydroxide/Mg Hydroxide (Mylanta Plus Xs) 15 ml PRN AFTMEALHC PRN PO DYSPEPSIA; Start 04/14/17 at 23:00 Magnesium Hydroxide (Milk Of Magnesia) 2,400 mg PRN QHS PRN PO CONSTIPATION; Start 04/14/17 at 23:00 Ciprofloxacin (Cipro) 250 mg BID66 PO Last administered on 04/18/17at 18:11; Start 04/15/17 at 06:00; Stop 04/20/17 at 05:59 Lactobacillus Rhamnosus (Culturelle) 1 cap BID PO Last administered on at 19:22; Start 04/15/17 at 09:00 Amlodipine Besylate (Norvasc) 10 mg DAILY PO Last administered on 04/18/17at 08: 15; Start 04/15/17 at 09:00 Aspirin (Aspirin Enteric Coated) 325 mg DAILY PO Last administered on at 08:07; Start 04/15/17 at 09:00 Atenolol (Tenormin) 50 mg BID PO Last administered on 04/18/17at 19:22; Start at 09:00 Celecoxib (CeleBREX) 100 mg DAILY PO Last administered on 04/15/17at 09:30; Start 04/15/17 at 09:00; Stop 04/15/17 at 15:47; Status DC Insulin Aspart (NovoLOG) 6 units TIDWMEALS SQ Last administered on 04/15/17at 12: 18; Start 04/15/17 at 08:00; Stop 04/15/17 at 16:59; Status DC Loperamide HCl (Imodium) 2 mg PRN Q6HRS PRN PO DIARRHEA; Start 04/15/17 at 06:45 Nystatin (Nystop) 1 gricel PRN Q12HR PRN TP excoriation; Start 04/15/17 at 06:45 Lisinopril (Prinivil) 40 mg DAILY PO Last administered on 04/18/17at 08:16; Start 04/15/17 at 09:00 Hydrochlorothiazide (Microzide) 12.5 mg DAILY PO Last administered on at 08:54; Start 04/15/17 at 09:00; Stop 04/16/17 at 17:04; Status DC Insulin Detemir (Levemir) 45 units QHS SQ Last administered on 04/18/17at 19:25 ; Start 04/15/17 at 21:00 Clonidine HCl (Catapres Tts-1) 1 patch WEEKLY TD Last administered on 04/15/17at 16:22; Start 04/15/17 at 16:00 Insulin Aspart (NovoLOG) 8 units TIDWMEALS SQ Last administered on 04/18/17at 18 :12; Start 04/15/17 at 17:00 Insulin Aspart (NovoLOG) 0-5 UNITS QIDACHS SQ Last administered on 04/18/17at 19 :27; Start 04/15/17 at 21:00 Dextrose 12.5 gm PRN Q15MIN PRN IV SEE COMMENTS; Start 04/15/17 at 17:00 Sertraline HCl (Zoloft) 25 mg DAILY PO Last administered on 04/18/17at 08:07; Start 04/16/17 at 09:00; Stop 04/18/17 at 18:20; Status DC Mirtazapine (Remeron) 7.5 mg QHS PO Last administered on 04/18/17at 19:23; Start 04/15/17 at 21:00 Insulin Aspart (NovoLOG) 15 units 1X ONCE SQ Last administered on 04/15/17at 19: 45; Start 04/15/17 at 19:45; Stop 04/15/17 at 19:46; Status DC Furosemide (Lasix) 20 mg DAILY PO Last administered on 04/18/17at 08:07; Start 04/17/17 at 09:00 Quetiapine Fumarate (SEROquel) 25 mg QHS PO Last administered on 04/18/17at 19: 22; Start 04/17/17 at 21:00 Glucose (Insta-Glucose) 15 gm PRN Q15MIN PRN PO LOW BLOOD SUGAR Last administered on 04/18/17at 07:30; Start 04/18/17 at 07:30 Sertraline HCl (Zoloft) 50 mg DAILY PO ; Start 04/19/17 at 09:00 Active Scripts Active Reported Nystatin 15 Gm Powder 1 Gricel TP PRN Q12HR PRN Novolog Flexpen (Insulin Aspart) 100 Unit/1 Ml Insuln.pen 6 Unit SQ TIDWMEALS Lantus Solostar (Insulin Glargine,Hum.rec.anlog) 100 Unit/1 Ml Insuln.pen 45 Unit SQ HS Imodium A-D (Loperamide HCl) 2 Mg Capsule 2 Mg PO PRN Q6HRS PRN Hydrochlorothiazide Tablet (Hydrochlorothiazide) 12.5 Mg Tablet 12.5 Mg PO DAILY Donepezil Hcl 10 Mg Tablet 10 Mg PO HS Celebrex (Celecoxib) 100 Mg Capsule 100 Mg PO DAILY Benazepril Hcl 40 Mg Tablet 40 Mg PO DAILY Atenolol 50 Mg Tablet 50 Mg PO BID Aspirin Ec (Aspirin) 325 Mg Tablet. 325 Mg PO DAILY Amlodipine Besylate 10 Mg Tablet 10 Mg PO DAILY I have reviewed the current psychotropics carefully including drug interactions. Risk benefit ratio favors no change other than as noted in my dictated progress note. Diagnosis: Problems: (1) Dementia (2) Medical clearance for psychiatric admission (3) Anxiety disorder (4) Impulse control disorder (5) Dementia, vascular, with depression (6) Dementia, vascular, with delusions (7) Dementia in Alzheimer's disease with depression (8) Dementia in Alzheimer's disease with delusions ROSS CONDE MD Apr 18, 2017 20:00
[2017-04-19 06:00] VITALS: BP 145/67
[2017-04-19] MEDS: CIPROFLOXACIN HCL 250 MG TABLET PO SCH ×2 (06:28→17:56)
[2017-04-19 07:25] LABS: BASO # 0.1 x10^3/uL (0.0-0.2); BASO % 1 % (0-3); EOS # 0.3 x10^3/uL (0.0-0.7); EOS % 5 % (0-3); HEMATOCRIT 36.5 % (36.0-47.0); HEMOGLOBIN 12.6 g/dL (12.0-15.5); LYMPH # 1.9 x10^3/uL (1.0-4.8); LYMPH % 34 % (24-48); MEAN CORPUSCULAR HEMOGLOBIN 29 pg (25-35); MEAN CORPUSCULAR HGB CONC 34 g/dL (31-37); MEAN CORPUSCULAR VOLUME 85 fL (79-100); MONO # 0.5 x10^3/uL (0.0-1.1); MONO % 9 % (0-9); NEUT # 2.9 x10^3uL (1.8-7.7); NEUT % 52 % (31-73); PLATELET COUNT 174 x10^3/uL (140-400); RED BLOOD COUNT 4.28 x10^6/uL (3.50-5.40); RED CELL DISTRIBUTION WIDTH 13.6 % (11.5-14.5); WHITE BLOOD COUNT 5.7 x10^3/uL (4.0-11.0)
[2017-04-19] MEDS: INSULIN ASPART 300 UNITS/3 ML INSULN.PEN SQ SCH ×7 (07:30→21:00)
[2017-04-19] MEDS: ASPIRIN ENTERIC COATED 325 MG TABLET.DR. PO SCH (07:37)
[2017-04-19] MEDS: FUROSEMIDE 20 MG TABLET PO SCH (07:38)
[2017-04-19] MEDS: LACTOBACILLUS RHAMNOSUS GG 1 CAPSULE. PO SCH ×2 (07:38→20:17)
[2017-04-19 07:51] LABS: CALCIUM 8.8 mg/dL (8.5-10.1); CREATININE 1.7 mg/dL (0.6-1.0); GFR 28.7; POTASSIUM 3.6 mmol/L (3.5-5.1); TOTAL BILIRUBIN 0.8 mg/dL (0.2-1.0); TOTAL PROTEIN 6.1 g/dL (6.4-8.2)
[2017-04-19] MEDS: SERTRALINE 50 MG TABLET. PO SCH (07:53)
[2017-04-19] MEDS: LISINOPRIL 20 MG TABLET PO SCH (09:00)
[2017-04-19] MEDS: amLODIPine BESYLATE 10 MG TABLET PO SCH (09:00)
[2017-04-19] MEDS: ATENOLOL 50 MG TABLET PO SCH (09:00)
[2017-04-19 15:42] VITALS: BP 122/50
--- NOTE | 2017-04-19 20:03 | PDOC ---
Exam Note: Amaury Note: Please also refer to the separate dictated note~for this date of service dictated separately.~Patient seen individually. Discussed the patient with Nursing staff reviewed the chart.~Reviewed interim history and current functioning. Reviewed vital signs,~Labs/ Radiology~and current medications noted below. Continue current treatment with the changes noted in the dictated addendum note Assessment: Vital Signs: Vital Signs Date Time Temp Pulse Resp B/P (MAP) Pulse Ox O2 Delivery O2 Flow Rate FiO2 04/19/17 15:42 98.0 71 20 122/50 (74) 94 04/14/17 14:55 Room Air I&O Intake and Output 04/19/17 07:00 Intake Total 960 ml Balance 960 ml Intake Oral 960 ml Labs: Laboratory Tests Test 04/19/17 07:07 04/19/17 07:28 04/19/17 09:24 04/19/17 11:22 White Blood Count 5.7 x10^3/uL (4.0-11.0) Red Blood Count 4.28 x10^6/uL (3.50-5.40) Hemoglobin 12.6 g/dL (12.0-15.5) Hematocrit 36.5 % (36.0-47.0) Mean Corpuscular Volume 85 fL (79-100) Mean Corpuscular Hemoglobin 29 pg (25-35) Mean Corpuscular Hemoglobin Concent 34 g/dL (31-37) Red Cell Distribution Width 13.6 % (11.5-14.5) Platelet Count 174 x10^3/uL (140-400) Neutrophils (%) (Auto) 52 % (31-73) Lymphocytes (%) (Auto) 34 % (24-48) Monocytes (%) (Auto) 9 % (0-9) Eosinophils (%) (Auto) 5 % (0-3) H Basophils (%) (Auto) 1 % (0-3) Neutrophils # (Auto) 2.9 x10^3uL (1.8-7.7) Lymphocytes # (Auto) 1.9 x10^3/uL (1.0-4.8) Monocytes # (Auto) 0.5 x10^3/uL (0.0-1.1) Eosinophils # (Auto) 0.3 x10^3/uL (0.0-0.7) Basophils # (Auto) 0.1 x10^3/uL (0.0-0.2) Sodium Level 147 mmol/L (136-145) H Potassium Level 3.6 mmol/L (3.5-5.1) Chloride Level 108 mmol/L (98-107) H Carbon Dioxide Level 34 mmol/L (21-32) H Anion Gap 5 (6-14) L Blood Urea Nitrogen 36 mg/dL (7-20) H Creatinine 1.7 mg/dL (0.6-1.0) H Estimated GFR (Cockcroft-Gault) 28.7 BUN/Creatinine Ratio 21 (6-20) H Glucose Level 57 mg/dL (70-99) L Calcium Level 8.8 mg/dL (8.5-10.1) Total Bilirubin 0.8 mg/dL (0.2-1.0) Aspartate Amino Transferase (AST) 14 U/L (15-37) L Alanine Aminotransferase (ALT) 15 U/L (14-59) Alkaline Phosphatase 59 U/L (46-116) Total Protein 6.1 g/dL (6.4-8.2) L Albumin 3.0 g/dL (3.4-5.0) L Albumin/Globulin Ratio 1.0 (1.0-1.7) Glucose (Fingerstick) 56 mg/dL (70-99) L 154 mg/dL (70-99) H 161 mg/dL (70-99) H Test 04/19/17 16:22 04/19/17 19:17 Glucose (Fingerstick) 86 mg/dL (70-99) 120 mg/dL (70-99) H Current Medications: Meds: Current Medications Ciprofloxacin (Cipro) 500 mg 1X ONCE PO Last administered on 04/14/17at 17:25; Start 04/14/17 at 17:15; Stop 04/14/17 at 17:16; Status DC Donepezil HCl (Aricept) 10 mg HS PO Last administered on 04/18/17at 19:23; Start 04/15/17 at 21:00 Acetaminophen (Tylenol) 650 mg PRN Q6HRS PRN PO PAIN / TEMP; Start 04/14/17 at 23:00 Multi-Ingredient Ointment (Analgesic [place]) 1 gricel PRN QID PRN TP MUSCLE PAIN; Start 04/14/17 at 23:00 Al Hydroxide/Mg Hydroxide (Mylanta Plus Xs) 15 ml PRN AFTMEALHC PRN PO DYSPEPSIA; Start 04/14/17 at 23:00 Magnesium Hydroxide (Milk Of Magnesia) 2,400 mg PRN QHS PRN PO CONSTIPATION; Start 04/14/17 at 23:00 Ciprofloxacin (Cipro) 250 mg [id number] PO Last administered on 04/19/17at 17:56; Start 04/15/17 at 06:00; Stop 04/20/17 at 05:59 Lactobacillus Rhamnosus (Culturelle) 1 cap BID PO Last administered on at 07:38; Start 04/15/17 at 09:00 Amlodipine Besylate (Norvasc) 10 mg DAILY PO Last administered on 04/19/17at 09: 00; Start 04/15/17 at 09:00 Aspirin (Aspirin Enteric Coated) 325 mg DAILY PO Last administered on at 07:37; Start 04/15/17 at 09:00 Atenolol (Tenormin) 50 mg BID PO Last administered on 04/19/17at 09:00; Start at 09:00; Stop 04/19/17 at 19:38; Status DC Celecoxib (CeleBREX) 100 mg DAILY PO Last administered on 04/15/17at 09:30; Start 04/15/17 at 09:00; Stop 04/15/17 at 15:47; Status DC Insulin Aspart (NovoLOG) 6 units TIDWMEALS SQ Last administered on 04/15/17at 12: 18; Start 04/15/17 at 08:00; Stop 04/15/17 at 16:59; Status DC Loperamide HCl (Imodium) 2 mg PRN Q6HRS PRN PO DIARRHEA; Start 04/15/17 at 06:45 Nystatin (Nystop) 1 gricel PRN Q12HR PRN TP excoriation; Start 04/15/17 at 06:45 Lisinopril (Prinivil) 40 mg DAILY PO Last administered on 04/19/17at 09:00; Start 04/15/17 at 09:00 Hydrochlorothiazide (Microzide) 12.5 mg DAILY PO Last administered on at 08:54; Start 04/15/17 at 09:00; Stop 04/16/17 at 17:04; Status DC Insulin Detemir (Levemir) 45 units QHS SQ Last administered on 04/18/17 19:25 ; Start 04/15/17 at 21:00; Stop 04/19/17 at 19:37; Status DC Clonidine HCl (Catapres Tts-1) 1 patch WEEKLY TD Last administered on 04/15/17at 16:22; Start 04/15/17 at 16:00 Insulin Aspart (NovoLOG) 8 units TIDWMEALS SQ Last administered on 04/19/17 17 :00; Start 04/15/17 at 17:00 Insulin Aspart (NovoLOG) 0-5 UNITS QIDACHS SQ Last administered on 04/19/17 13 :20; Start 04/15/17 at 21:00 Dextrose 12.5 gm PRN Q15MIN PRN IV SEE COMMENTS; Start 04/15/17 at 17:00 Sertraline HCl (Zoloft) 25 mg DAILY PO Last administered on 04/18/17at 08:07; Start 04/16/17 at 09:00; Stop 04/18/17 at 18:20; Status DC Mirtazapine (Remeron) 7.5 mg QHS PO Last administered on 04/18/17 19:23; Start 04/15/17 at 21:00 Insulin Aspart (NovoLOG) 15 units 1X ONCE SQ Last administered on 04/15/17at 19: 45; Start 04/15/17 at 19:45; Stop 04/15/17 at 19:46; Status DC Furosemide (Lasix) 20 mg DAILY PO Last administered on 04/19/17at 07:38; Start 04/17/17 at 09:00 Quetiapine Fumarate (SEROquel) 25 mg QHS PO Last administered on 04/18/17 19: 22; Start 04/17/17 at 21:00 Glucose (Insta-Glucose) 15 gm PRN Q15MIN PRN PO LOW BLOOD SUGAR Last administered on 04/18/17at 07:30; Start 04/18/17 at 07:30 Sertraline HCl (Zoloft) 50 mg DAILY PO Last administered on 04/19/17at 07:53; Start 1/13/18 at 09:00 Insulin Detemir (Levemir) 35 units QHS SQ ; Start 04/19/17 at 21:00 Atenolol (Tenormin) 50 mg DAILY PO ; Start 04/20/17 at 09:00 Active Scripts Active Reported Nystatin 15 Gm Powder 1 Gricel TP PRN Q12HR PRN Novolog Flexpen (Insulin Aspart) 100 Unit/1 Ml Insuln.pen 6 Unit SQ TIDWMEALS Lantus Solostar (Insulin Glargine,Hum.rec.anlog) 100 Unit/1 Ml Insuln.pen 45 Unit SQ HS Imodium A-D (Loperamide HCl) 2 Mg Capsule 2 Mg PO PRN Q6HRS PRN Hydrochlorothiazide Tablet (Hydrochlorothiazide) 12.5 Mg Tablet 12.5 Mg PO DAILY Donepezil Hcl 10 Mg Tablet 10 Mg PO HS Celebrex (Celecoxib) 100 Mg Capsule 100 Mg PO DAILY Benazepril Hcl 40 Mg Tablet 40 Mg PO DAILY Atenolol 50 Mg Tablet 50 Mg PO BID Aspirin Ec (Aspirin) 325 Mg Tablet. 325 Mg PO DAILY Amlodipine Besylate 10 Mg Tablet 10 Mg PO DAILY I have reviewed the current psychotropics carefully including drug interactions. Risk benefit ratio favors no change other than as noted in my dictated progress note. Diagnosis: Problems: (1) Dementia (2) Medical clearance for psychiatric admission (3) Anxiety disorder (4) Impulse control disorder (5) Dementia, vascular, with depression (6) Dementia, vascular, with delusions (7) Dementia in Alzheimer's disease with depression (8) Dementia in Alzheimer's disease with delusions ROSS CONDE MD Apr 19, 2017 20:03
[2017-04-19] MEDS: QUEtiapine 25 MG TABLET. PO SCH (20:17)
[2017-04-19] MEDS: MIRTAZAPINE 7.5 MG TABLET. PO SCH (20:17)
[2017-04-19] MEDS: DONEPEZIL HCL 10 MG TABLET PO SCH (20:19)
[2017-04-19] MEDS: INSULIN DETEMIR 300 UNITS/3 ML INSULN.PEN. SQ SCH (20:22)
[2017-04-20 05:46] VITALS: BP 124/56
[2017-04-20] MEDS: amLODIPine BESYLATE 10 MG TABLET PO SCH (07:19)
[2017-04-20] MEDS: FUROSEMIDE 20 MG TABLET PO SCH (07:19)
[2017-04-20] MEDS: LACTOBACILLUS RHAMNOSUS GG 1 CAPSULE. PO SCH ×2 (07:19→20:32)
[2017-04-20] MEDS: ASPIRIN ENTERIC COATED 325 MG TABLET.DR. PO SCH (07:20)
[2017-04-20] MEDS: LISINOPRIL 20 MG TABLET PO SCH (07:20)
[2017-04-20] MEDS: SERTRALINE 50 MG TABLET. PO SCH (07:20)
[2017-04-20] MEDS: INSULIN ASPART 300 UNITS/3 ML INSULN.PEN SQ SCH ×7 (07:30→21:00)
[2017-04-20] MEDS: ATENOLOL 50 MG TABLET PO SCH (07:39)
[2017-04-20 16:44] VITALS: BP 147/57
--- NOTE | 2017-04-20 19:48 | PDOC ---
Exam Note: Amaury Note: Please also refer to the separate dictated note~for this date of service dictated separately.~Patient seen individually. Discussed the patient with Nursing staff reviewed the chart.~Reviewed interim history and current functioning. Reviewed vital signs,~Labs/ Radiology~and current medications noted below. Continue current treatment with the changes noted in the dictated addendum note Assessment: Vital Signs: Vital Signs Date Time Temp Pulse Resp B/P (MAP) Pulse Ox O2 Delivery O2 Flow Rate FiO2 04/20/17 16:44 97.7 51 18 147/57 (87) 96 04/14/17 14:55 Room Air I&O Intake and Output 04/20/17 07:00 Intake Total 1320 ml Balance 1320 ml Intake Oral 1320 ml Labs: Laboratory Tests Test 04/20/17 07:41 04/20/17 11:48 04/20/17 16:37 04/20/17 19:15 Glucose (Fingerstick) 61 mg/dL (70-99) L 225 mg/dL (70-99) H 157 mg/dL (70-99) H 135 mg/dL (70-99) H Current Medications: Meds: Current Medications Ciprofloxacin (Cipro) 500 mg 1X ONCE PO Last administered on 04/14/17at 17:25; Start 04/14/17 at 17:15; Stop 04/14/17 at 17:16; Status DC Donepezil HCl (Aricept) 10 mg HS PO Last administered on 04/19/17at 20:19; Start 04/15/17 at 21:00 Acetaminophen (Tylenol) 650 mg PRN Q6HRS PRN PO PAIN / TEMP; Start 04/14/17 at 23:00 Multi-Ingredient Ointment (Analgesic [place]) 1 gricel PRN QID PRN TP MUSCLE PAIN; Start 04/14/17 at 23:00 Al Hydroxide/Mg Hydroxide (Mylanta Plus Xs) 15 ml PRN AFTMEALHC PRN PO DYSPEPSIA; Start 04/14/17 at 23:00 Magnesium Hydroxide (Milk Of Magnesia) 2,400 mg PRN QHS PRN PO CONSTIPATION; Start 04/14/17 at 23:00 Ciprofloxacin (Cipro) 250 mg BID66 PO Last administered on 04/19/17at 17:56; Start 04/15/17 at 06:00; Stop 04/20/17 at 05:59; Status DC Lactobacillus Rhamnosus (Culturelle) 1 cap BID PO Last administered on at 07:19; Start 04/15/17 at 09:00 Amlodipine Besylate (Norvasc) 10 mg DAILY PO Last administered on 04/20/17at 07: 19; Start 04/15/17 at 09:00 Aspirin (Aspirin Enteric Coated) 325 mg DAILY PO Last administered on at 07:20; Start 04/15/17 at 09:00 Atenolol (Tenormin) 50 mg BID PO Last administered on 04/19/17at 09:00; Start at 09:00; Stop 04/19/17 at 19:38; Status DC Celecoxib (CeleBREX) 100 mg DAILY PO Last administered on 04/15/17at 09:30; Start 04/15/17 at 09:00; Stop 04/15/17 at 15:47; Status DC Insulin Aspart (NovoLOG) 6 units TIDWMEALS SQ Last administered on 04/15/17at 12: 18; Start 04/15/17 at 08:00; Stop 04/15/17 at 16:59; Status DC Loperamide HCl (Imodium) 2 mg PRN Q6HRS PRN PO DIARRHEA; Start 04/15/17 at 06:45 Nystatin (Nystop) 1 gricel PRN Q12HR PRN TP excoriation; Start 04/15/17 at 06:45 Lisinopril (Prinivil) 40 mg DAILY PO Last administered on 04/20/17at 07:20; Start 04/15/17 at 09:00 Hydrochlorothiazide (Microzide) 12.5 mg DAILY PO Last administered on at 08:54; Start 04/15/17 at 09:00; Stop 04/16/17 at 17:04; Status DC Insulin Detemir (Levemir) 45 units QHS SQ Last administered on 04/18/17at 19:25 ; Start 04/15/17 at 21:00; Stop 04/19/17 at 19:37; Status DC Clonidine HCl (Catapres Tts-1) 1 patch WEEKLY TD Last administered on 04/15/17at 16:22; Start 04/15/17 at 16:00 Insulin Aspart (NovoLOG) 8 units TIDWMEALS SQ Last administered on 04/20/17at 17 :13; Start 04/15/17 at 17:00 Insulin Aspart (NovoLOG) 0-5 UNITS QIDACHS SQ Last administered on 04/20/17at 17 :13; Start 04/15/17 at 21:00 Dextrose 12.5 gm PRN Q15MIN PRN IV SEE COMMENTS; Start 04/15/17 at 17:00 Sertraline HCl (Zoloft) 25 mg DAILY PO Last administered on 04/18/17at 08:07; Start 04/16/17 at 09:00; Stop 04/18/17 at 18:20; Status DC Mirtazapine (Remeron) 7.5 mg QHS PO Last administered on 04/19/17at 20:17; Start 04/15/17 at 21:00 Insulin Aspart (NovoLOG) 15 units 1X ONCE SQ Last administered on 04/15/17at 19: 45; Start 04/15/17 at 19:45; Stop 04/15/17 at 19:46; Status DC Furosemide (Lasix) 20 mg DAILY PO Last administered on 04/20/17at 07:19; Start 04/17/17 at 09:00 Quetiapine Fumarate (SEROquel) 25 mg QHS PO Last administered on 04/19/17at 20: 17; Start 04/17/17 at 21:00; Stop 04/20/17 at 19:05; Status DC Glucose (Insta-Glucose) 15 gm PRN Q15MIN PRN PO LOW BLOOD SUGAR Last administered on 04/18/17at 07:30; Start 04/18/17 at 07:30 Sertraline HCl (Zoloft) 50 mg DAILY PO Last administered on 04/20/17at 07:20; Start 04/19/17 at 09:00 Insulin Detemir (Levemir) 35 units QHS SQ Last administered on 04/19/17at 20:22 ; Start 04/19/17 at 21:00 Atenolol (Tenormin) 50 mg DAILY PO Last administered on 04/20/17at 07:39; Start 04/20/17 at 09:00 Quetiapine Fumarate (SEROquel) 50 mg QHS PO ; Start 04/20/17 at 21:00 Active Scripts Active Reported Nystatin 15 Gm Powder 1 Gricel TP PRN Q12HR PRN Novolog Flexpen (Insulin Aspart) 100 Unit/1 Ml Insuln.pen 6 Unit SQ TIDWMEALS Lantus Solostar (Insulin Glargine,Hum.rec.anlog) 100 Unit/1 Ml Insuln.pen 45 Unit SQ HS Imodium A-D (Loperamide HCl) 2 Mg Capsule 2 Mg PO PRN Q6HRS PRN Hydrochlorothiazide Tablet (Hydrochlorothiazide) 12.5 Mg Tablet 12.5 Mg PO DAILY Donepezil Hcl 10 Mg Tablet 10 Mg PO HS Celebrex (Celecoxib) 100 Mg Capsule 100 Mg PO DAILY Benazepril Hcl 40 Mg Tablet 40 Mg PO DAILY Atenolol 50 Mg Tablet 50 Mg PO BID Aspirin Ec (Aspirin) 325 Mg Tablet.dr 325 Mg PO DAILY Amlodipine Besylate 10 Mg Tablet 10 Mg PO DAILY I have reviewed the current psychotropics carefully including drug interactions. Risk benefit ratio favors no change other than as noted in my dictated progress note. Diagnosis: Problems: (1) Dementia (2) Medical clearance for psychiatric admission (3) Anxiety disorder (4) Impulse control disorder (5) Dementia, vascular, with depression (6) Dementia, vascular, with delusions (7) Dementia in Alzheimer's disease with depression (8) Dementia in Alzheimer's disease with delusions ROSS CONDE MD Apr 20, 2017 19:48
[2017-04-20] MEDS: DONEPEZIL HCL 10 MG TABLET PO SCH (20:31)
[2017-04-20] MEDS: MIRTAZAPINE 7.5 MG TABLET. PO SCH (20:32)
[2017-04-20] MEDS: QUEtiapine 50 MG TABLET. PO SCH (20:35)
[2017-04-20] MEDS: INSULIN DETEMIR 300 UNITS/3 ML INSULN.PEN. SQ SCH (20:51)
--- NOTE | 2017-04-20 23:34 | PN ---
DATE: 04/16/2017 This late entry 04/16/2017 covers elements not covered in my initial note 04/16/2017. SUBJECTIVE: The patient slept 8 hours previous evening, isolative, somewhat depressed. She had many questions about reasons for admission and I went over these in detail. She is not accepting of this. Unable to see how staff at [facility] could have seen the same situation in a slightly different light than she does. Short term memory problems interfere with this perception as well from her. REVIEW OF SYSTEMS: No CV, , pulmonary, eye system symptoms on review. MENTAL STATUS EXAM: Oriented to herself and situation. Speech coherent, has some latency. Abstraction fair, computation impaired, language function intact. Mood and affect somewhat dysphoric, irritable at times. LABORATORY DATA: Reviewed. IMPRESSION: Major neurocognitive disorder, Alzheimer, vascular with depression, delusion, behavioral disturbance. Rest unchanged. PLAN: Continue psychotropics mentioned in my initial note. Adjust as clinically indicated. ORSS CONDE MD DR: ABEL/sascha JOB#: [id number] / [id number]
--- NOTE | 2017-04-20 23:35 | PN ---
DATE: 04/17/2017 This late entry 04/17/2017 covers elements not covered in my initial note 04/17/2017. SUBJECTIVE: The patient was staffed at a treatment team meeting with the entire team morning of 04/17/2017 and the patient's daughter, Jb, attended the lengthy conference. Reviewed the patient's history, diagnosis. Daughter remarked on significant paranoia that the patient has experienced. Reportedly, the patient had her daughter investigated for fiduciary abuse as she believed the daughter was stealing her money, extremely paranoid, suspicious about others as well. Appetite 80% of meals, average sleep 6-1/2 hours, slept 5 hours previous evening. She was at [facility] then transferred to [facility]. On the unit, calmer, pleasant, withdrawn, depressed. Compliant with medications, obsessive. REVIEW OF SYSTEMS: No CV, , pulmonary, eye system symptoms on review. MENTAL STATUS EXAM: Oriented to herself and situation. Speech coherent, abstraction fair, computation impaired, language function intact, attention span short. Mood and affect remains dysphoric. LABORATORY DATA: Reviewed. IMPRESSION: Major neurocognitive disorder, early Alzheimer, vascular with depression, delusion, major depressive disorder with psychotic features. Rest unchanged. PLAN: Continue psychotropics mentioned in my initial note. Start Seroquel 25 mg p.o. at bedtime for her psychotic symptoms. Adjust further as clinically indicated. MAN Ivette CONDE MD DR: ABEL/sascha JOB#: [id number] / [id number]
--- NOTE | 2017-04-21 01:03 | PN ---
DATE: 04/18/2017 This is a late entry 04/18/2017. Covers elements not covered in my initial note 04/18/2017. SUBJECTIVE: I met with the patient in the evening of 04/18/2017. Patient slept 6-1/4 hours previous evening. Remains quite paranoid, believes the papers have been stolen, people are stealing from her, including her daughter. She took a shower at 4:00 a.m. REVIEW OF SYSTEMS: No CV, , pulmonary, eye, ENT system symptoms on review. Reliability poor. MENTAL STATUS EXAM: Oriented to herself and situation. Speech coherent, abstraction fair, computation impaired, language function intact. Attention span short. She is quite paranoid. LABORATORY DATA: Reviewed. IMPRESSION: Major neurocognitive disorder, early Alzheimer, vascular with delusion, depression. Rest unchanged. PLAN: Increase Zoloft to 50 mg a day. Continue rest psychotropics, Remeron, Seroquel, Aricept unchanged. MAN Ivette CONDE MD DR: ABEL/sascha JOB#: [id number] / [id number]
--- NOTE | 2017-04-21 01:06 | PN ---
DATE: 04/19/2017 This note covers elements not covered in my initial note 04/19/2017. SUBJECTIVE: I met with the patient evening of 04/19/2017. The patient has been quite demanding, labile at times, attention seeking per nursing report, paranoid, confused. No CV, , pulmonary, eye, ENT system symptoms on review. MENTAL STATUS EXAM: Oriented to herself and situation. Speech has some latency, coherent. Abstraction fair, computation impaired, language function intact. Short term memory is impaired. She is quite paranoid as I sat with her extensively. She had forgotten these addressed reasons prompting admission and frequently repeats the same questions. LABORATORY DATA: Reviewed. IMPRESSION: Major neurocognitive disorder, early Alzheimer, vascular with delusion, depression, psychotic disorder, unspecified. PLAN: Continue psychotropics mentioned in my initial note. MAN Ivette CONDE MD DR: ABEL/sascha JOB#: [id number] / [id number]
[2017-04-21 06:12] VITALS: BP 145/77
[2017-04-21] MEDS: INSULIN ASPART 300 UNITS/3 ML INSULN.PEN SQ SCH ×7 (07:30→19:12)
[2017-04-21] MEDS: amLODIPine BESYLATE 10 MG TABLET PO SCH (08:26)
[2017-04-21] MEDS: SERTRALINE 50 MG TABLET. PO SCH (08:26)
[2017-04-21] MEDS: FUROSEMIDE 20 MG TABLET PO SCH (08:26)
[2017-04-21] MEDS: ASPIRIN ENTERIC COATED 325 MG TABLET.DR. PO SCH (08:28)
[2017-04-21] MEDS: ATENOLOL 50 MG TABLET PO SCH (08:28)
[2017-04-21] MEDS: LACTOBACILLUS RHAMNOSUS GG 1 CAPSULE. PO SCH ×2 (08:28→19:06)
[2017-04-21] MEDS: LISINOPRIL 20 MG TABLET PO SCH (08:28)
[2017-04-21 16:00] VITALS: BP 153/58
[2017-04-21] MEDS: QUEtiapine 50 MG TABLET. PO SCH (19:06)
[2017-04-21] MEDS: MIRTAZAPINE 7.5 MG TABLET. PO SCH (19:06)
[2017-04-21] MEDS: DONEPEZIL HCL 10 MG TABLET PO SCH (19:06)
[2017-04-21] MEDS: INSULIN DETEMIR 300 UNITS/3 ML INSULN.PEN. SQ SCH (19:12)
--- NOTE | 2017-04-21 20:07 | PDOC ---
Exam Note: Amaury Note: Please also refer to the separate dictated note~for this date of service dictated separately.~Patient seen individually. Discussed the patient with Nursing staff reviewed the chart.~Reviewed interim history and current functioning. Reviewed vital signs,~Labs/ Radiology~and current medications noted below. Continue current treatment with the changes noted in the dictated addendum note Assessment: Vital Signs: Vital Signs Date Time Temp Pulse Resp B/P (MAP) Pulse Ox O2 Delivery O2 Flow Rate FiO2 04/21/17 16:00 97.8 55 16 153/58 (89) 96 04/21/17 06:12 Room Air I&O Intake and Output 04/21/17 07:00 Intake Total 1440 ml Balance 1440 ml Intake Oral 1440 ml Labs: Laboratory Tests Test 04/21/17 07:08 04/21/17 08:27 04/21/17 11:15 04/21/17 16:27 Glucose (Fingerstick) 57 mg/dL (70-99) L 84 mg/dL (70-99) 137 mg/dL (70-99) H 126 mg/dL (70-99) H Test 04/21/17 19:04 Glucose (Fingerstick) 164 mg/dL (70-99) H Current Medications: Meds: Current Medications Ciprofloxacin (Cipro) 500 mg 1X ONCE PO Last administered on 04/14/17at 17:25; Start 04/14/17 at 17:15; Stop 04/14/17 at 17:16; Status DC Donepezil HCl (Aricept) 10 mg HS PO Last administered on 04/21/17at 19:06; Start 04/15/17 at 21:00 Acetaminophen (Tylenol) 650 mg PRN Q6HRS PRN PO PAIN / TEMP; Start 04/14/17 at 23:00 Multi-Ingredient Ointment (Analgesic [place]) 1 gricel PRN QID PRN TP MUSCLE PAIN; Start 04/14/17 at 23:00 Al Hydroxide/Mg Hydroxide (Mylanta Plus Xs) 15 ml PRN AFTMEALHC PRN PO DYSPEPSIA; Start 04/14/17 at 23:00 Magnesium Hydroxide (Milk Of Magnesia) 2,400 mg PRN QHS PRN PO CONSTIPATION; Start 04/14/17 at 23:00 Ciprofloxacin (Cipro) 250 mg BID66 PO Last administered on 04/19/17at 17:56; Start 04/15/17 at 06:00; Stop 04/20/17 at 05:59; Status DC Lactobacillus Rhamnosus (Culturelle) 1 cap BID PO Last administered on at 19:06; Start 04/15/17 at 09:00 Amlodipine Besylate (Norvasc) 10 mg DAILY PO Last administered on 04/21/17at 08: 26; Start 04/15/17 at 09:00 Aspirin (Aspirin Enteric Coated) 325 mg DAILY PO Last administered on at 08:28; Start 04/15/17 at 09:00 Atenolol (Tenormin) 50 mg BID PO Last administered on 04/19/17at 09:00; Start at 09:00; Stop 04/19/17 at 19:38; Status DC Celecoxib (CeleBREX) 100 mg DAILY PO Last administered on 04/15/17at 09:30; Start 04/15/17 at 09:00; Stop 04/15/17 at 15:47; Status DC Insulin Aspart (NovoLOG) 6 units TIDWMEALS SQ Last administered on 04/15/17at 12: 18; Start 04/15/17 at 08:00; Stop 04/15/17 at 16:59; Status DC Loperamide HCl (Imodium) 2 mg PRN Q6HRS PRN PO DIARRHEA; Start 04/15/17 at 06:45 Nystatin (Nystop) 1 gricel PRN Q12HR PRN TP excoriation; Start 04/15/17 at 06:45 Lisinopril (Prinivil) 40 mg DAILY PO Last administered on 04/21/17at 08:28; Start 04/15/17 at 09:00 Hydrochlorothiazide (Microzide) 12.5 mg DAILY PO Last administered on at 08:54; Start 04/15/17 at 09:00; Stop 04/16/17 at 17:04; Status DC Insulin Detemir (Levemir) 45 units QHS SQ Last administered on 04/18/17at 19:25 ; Start 04/15/17 at 21:00; Stop 04/19/17 at 19:37; Status DC Clonidine HCl (Catapres Tts-1) 1 patch WEEKLY TD Last administered on 04/15/17at 16:22; Start 04/15/17 at 16:00 Insulin Aspart (NovoLOG) 8 units TIDWMEALS SQ Last administered on 04/21/17at 17 :05; Start 04/15/17 at 17:00 Insulin Aspart (NovoLOG) 0-5 UNITS QIDACHS SQ Last administered on 04/20/17at 17 :13; Start 04/15/17 at 21:00 Dextrose 12.5 gm PRN Q15MIN PRN IV SEE COMMENTS; Start 04/15/17 at 17:00 Sertraline HCl (Zoloft) 25 mg DAILY PO Last administered on 04/18/17at 08:07; Start 04/16/17 at 09:00; Stop 04/18/17 at 18:20; Status DC Mirtazapine (Remeron) 7.5 mg QHS PO Last administered on 04/21/17at 19:06; Start 04/15/17 at 21:00 Insulin Aspart (NovoLOG) 15 units 1X ONCE SQ Last administered on 04/15/17at 19: 45; Start 04/15/17 at 19:45; Stop 04/15/17 at 19:46; Status DC Furosemide (Lasix) 20 mg DAILY PO Last administered on 04/21/17at 08:26; Start 04/17/17 at 09:00 Quetiapine Fumarate (SEROquel) 25 mg QHS PO Last administered on 04/19/17at 20: 17; Start 04/17/17 at 21:00; Stop 04/20/17 at 19:05; Status DC Glucose (Insta-Glucose) 15 gm PRN Q15MIN PRN PO LOW BLOOD SUGAR Last administered on 04/18/17at 07:30; Start 04/18/17 at 07:30 Sertraline HCl (Zoloft) 50 mg DAILY PO Last administered on 04/21/17 08:26; Start 04/19/17 at 09:00 Insulin Detemir (Levemir) 35 units QHS SQ Last administered on 04/21/17at 19:12 ; Start 04/19/17 at 21:00 Atenolol (Tenormin) 50 mg DAILY PO Last administered on 04/21/17at 08:28; Start 04/20/17 at 09:00 Quetiapine Fumarate (SEROquel) 50 mg QHS PO Last administered on 04/21/17at 19: 06; Start 04/20/17 at 21:00 Active Scripts Active Reported Nystatin 15 Gm Powder 1 Gricel TP PRN Q12HR PRN Novolog Flexpen (Insulin Aspart) 100 Unit/1 Ml Insuln.pen 6 Unit SQ TIDWMEALS Lantus Solostar (Insulin Glargine,Hum.rec.anlog) 100 Unit/1 Ml Insuln.pen 45 Unit SQ HS Imodium A-D (Loperamide HCl) 2 Mg Capsule 2 Mg PO PRN Q6HRS PRN Hydrochlorothiazide Tablet (Hydrochlorothiazide) 12.5 Mg Tablet 12.5 Mg PO DAILY Donepezil Hcl 10 Mg Tablet 10 Mg PO HS Celebrex (Celecoxib) 100 Mg Capsule 100 Mg PO DAILY Benazepril Hcl 40 Mg Tablet 40 Mg PO DAILY Atenolol 50 Mg Tablet 50 Mg PO BID Aspirin Ec (Aspirin) 325 Mg Tablet.dr 325 Mg PO DAILY Amlodipine Besylate 10 Mg Tablet 10 Mg PO DAILY I have reviewed the current psychotropics carefully including drug interactions. Risk benefit ratio favors no change other than as noted in my dictated progress note. Diagnosis: Problems: (1) Dementia (2) Medical clearance for psychiatric admission (3) Anxiety disorder (4) Impulse control disorder (5) Dementia, vascular, with depression (6) Dementia, vascular, with delusions (7) Dementia in Alzheimer's disease with depression (8) Dementia in Alzheimer's disease with delusions ROSS CONDE MD Apr 21, 2017 20:07
[2017-04-22 06:07] VITALS: BP 129/59
[2017-04-22] MEDS: INSULIN ASPART 300 UNITS/3 ML INSULN.PEN SQ SCH ×7 (07:30→20:29)
[2017-04-22] MEDS: LISINOPRIL 20 MG TABLET PO SCH (08:06)
[2017-04-22] MEDS: amLODIPine BESYLATE 10 MG TABLET PO SCH (08:07)
[2017-04-22] MEDS: ASPIRIN ENTERIC COATED 325 MG TABLET.DR. PO SCH (08:08)
[2017-04-22] MEDS: LACTOBACILLUS RHAMNOSUS GG 1 CAPSULE. PO SCH ×2 (08:08→20:29)
[2017-04-22] MEDS: ATENOLOL 50 MG TABLET PO SCH (08:08)
[2017-04-22] MEDS: FUROSEMIDE 20 MG TABLET PO SCH (08:08)
[2017-04-22] MEDS: SERTRALINE 50 MG TABLET. PO SCH (08:08)
[2017-04-22] MEDS: cloNIDine TTS-1 1 PATCH PATCH TD SCH (08:10)
[2017-04-22 16:18] VITALS: BP 166/67
--- NOTE | 2017-04-22 20:08 | PDOC ---
Exam Note: Amaury Note: Please also refer to the separate dictated note~for this date of service dictated separately.~Patient seen individually. Discussed the patient with Nursing staff reviewed the chart.~Reviewed interim history and current functioning. Reviewed vital signs,~Labs/ Radiology~and current medications noted below. Continue current treatment with the changes noted in the dictated addendum note Assessment: Vital Signs: Vital Signs Date Time Temp Pulse Resp B/P (MAP) Pulse Ox O2 Delivery O2 Flow Rate FiO2 04/22/17 16:18 97.2 54 18 166/67 (100) 96 04/21/17 06:12 Room Air I&O Intake and Output 04/22/17 07:00 Intake Total 960 ml Balance 960 ml Intake Oral 960 ml # Bowel Movements 2 Labs: Laboratory Tests Test 04/22/17 07:45 04/22/17 08:31 04/22/17 11:59 04/22/17 17:08 Glucose (Fingerstick) 54 mg/dL (70-99) L 128 mg/dL (70-99) H 134 mg/dL (70-99) H 125 mg/dL (70-99) H Test 04/22/17 19:14 Glucose (Fingerstick) 104 mg/dL (70-99) H Current Medications: Meds: Current Medications Ciprofloxacin (Cipro) 500 mg 1X ONCE PO Last administered on 04/14/17at 17:25; Start 04/14/17 at 17:15; Stop 04/14/17 at 17:16; Status DC Donepezil HCl (Aricept) 10 mg HS PO Last administered on 04/21/17at 19:06; Start 04/15/17 at 21:00 Acetaminophen (Tylenol) 650 mg PRN Q6HRS PRN PO PAIN / TEMP; Start 04/14/17 at 23:00 Multi-Ingredient Ointment (Analgesic [place]) 1 gricel PRN QID PRN TP MUSCLE PAIN; Start 04/14/17 at 23:00 Al Hydroxide/Mg Hydroxide (Mylanta Plus Xs) 15 ml PRN AFTMEALHC PRN PO DYSPEPSIA; Start 04/14/17 at 23:00 Magnesium Hydroxide (Milk Of Magnesia) 2,400 mg PRN QHS PRN PO CONSTIPATION; Start 04/14/17 at 23:00 Ciprofloxacin (Cipro) 250 mg BID66 PO Last administered on 04/19/17at 17:56; Start 04/15/17 at 06:00; Stop 04/20/17 at 05:59; Status DC Lactobacillus Rhamnosus (Culturelle) 1 cap BID PO Last administered on at 08:08; Start 04/15/17 at 09:00 Amlodipine Besylate (Norvasc) 10 mg DAILY PO Last administered on 04/22/17at 08: 07; Start 04/15/17 at 09:00 Aspirin (Aspirin Enteric Coated) 325 mg DAILY PO Last administered on at 08:08; Start 04/15/17 at 09:00 Atenolol (Tenormin) 50 mg BID PO Last administered on 04/19/17at 09:00; Start at 09:00; Stop 04/19/17 at 19:38; Status DC Celecoxib (CeleBREX) 100 mg DAILY PO Last administered on 04/15/17at 09:30; Start 04/15/17 at 09:00; Stop 04/15/17 at 15:47; Status DC Insulin Aspart (NovoLOG) 6 units TIDWMEALS SQ Last administered on 04/15/17at 12: 18; Start 04/15/17 at 08:00; Stop 04/15/17 at 16:59; Status DC Loperamide HCl (Imodium) 2 mg PRN Q6HRS PRN PO DIARRHEA; Start 04/15/17 at 06:45 Nystatin (Nystop) 1 gricel PRN Q12HR PRN TP excoriation; Start 04/15/17 at 06:45 Lisinopril (Prinivil) 40 mg DAILY PO Last administered on 04/22/17at 08:06; Start 04/15/17 at 09:00 Hydrochlorothiazide (Microzide) 12.5 mg DAILY PO Last administered on at 08:54; Start 04/15/17 at 09:00; Stop 04/16/17 at 17:04; Status DC Insulin Detemir (Levemir) 45 units QHS SQ Last administered on 04/18/17at 19:25 ; Start 04/15/17 at 21:00; Stop 04/19/17 at 19:37; Status DC Clonidine HCl (Catapres Tts-1) 1 patch WEEKLY TD Last administered on at 08:10; Start 04/15/17 at 16:00 Insulin Aspart (NovoLOG) 8 units TIDWMEALS SQ Last administered on 04/22/17at 17 :16; Start 04/15/17 at 17:00 Insulin Aspart (NovoLOG) 0-5 UNITS QIDACHS SQ Last administered on 04/20/17at 17 :13; Start 04/15/17 at 21:00 Dextrose 12.5 gm PRN Q15MIN PRN IV SEE COMMENTS; Start 04/15/17 at 17:00 Sertraline HCl (Zoloft) 25 mg DAILY PO Last administered on 04/18/17at 08:07; Start 04/16/17 at 09:00; Stop 04/18/17 at 18:20; Status DC Mirtazapine (Remeron) 7.5 mg QHS PO Last administered on 04/21/17at 19:06; Start 04/15/17 at 21:00 Insulin Aspart (NovoLOG) 15 units 1X ONCE SQ Last administered on 04/15/17at 19: 45; Start 04/15/17 at 19:45; Stop 04/15/17 at 19:46; Status DC Furosemide (Lasix) 20 mg DAILY PO Last administered on 04/22/17at 08:08; Start 04/17/17 at 09:00 Quetiapine Fumarate (SEROquel) 25 mg QHS PO Last administered on 04/19/17at 20: 17; Start 04/17/17 at 21:00; Stop 04/20/17 at 19:05; Status DC Glucose (Insta-Glucose) 15 gm PRN Q15MIN PRN PO LOW BLOOD SUGAR Last administered on 04/18/17at 07:30; Start 04/18/17 at 07:30 Sertraline HCl (Zoloft) 50 mg DAILY PO Last administered on 04/22/17at 08:08; Start 04/19/17 at 09:00 Insulin Detemir (Levemir) 35 units QHS SQ Last administered on 04/21/17at 19:12 ; Start 04/19/17 at 21:00; Stop 04/22/17 at 15:58; Status DC Atenolol (Tenormin) 50 mg DAILY PO Last administered on 04/22/17at 08:08; Start 04/20/17 at 09:00 Quetiapine Fumarate (SEROquel) 50 mg QHS PO Last administered on 04/21/17at 19: 06; Start 04/20/17 at 21:00 Insulin Detemir (Levemir) 20 units QHS SQ ; Start 04/22/17 at 21:00 Active Scripts Active Reported Nystatin 15 Gm Powder 1 Gricel TP PRN Q12HR PRN Novolog Flexpen (Insulin Aspart) 100 Unit/1 Ml Insuln.pen 6 Unit SQ TIDWMEALS Lantus Solostar (Insulin Glargine,Hum.rec.anlog) 100 Unit/1 Ml Insuln.pen 45 Unit SQ HS Imodium A-D (Loperamide HCl) 2 Mg Capsule 2 Mg PO PRN Q6HRS PRN Hydrochlorothiazide Tablet (Hydrochlorothiazide) 12.5 Mg Tablet 12.5 Mg PO DAILY Donepezil Hcl 10 Mg Tablet 10 Mg PO HS Celebrex (Celecoxib) 100 Mg Capsule 100 Mg PO DAILY Benazepril Hcl 40 Mg Tablet 40 Mg PO DAILY Atenolol 50 Mg Tablet 50 Mg PO BID Aspirin Ec (Aspirin) 325 Mg Tablet. 325 Mg PO DAILY Amlodipine Besylate 10 Mg Tablet 10 Mg PO DAILY I have reviewed the current psychotropics carefully including drug interactions. Risk benefit ratio favors no change other than as noted in my dictated progress note. Diagnosis: Problems: (1) Dementia (2) Medical clearance for psychiatric admission (3) Anxiety disorder (4) Impulse control disorder (5) Dementia, vascular, with depression (6) Dementia, vascular, with delusions (7) Dementia in Alzheimer's disease with depression (8) Dementia in Alzheimer's disease with delusions ROSS CONDE MD Apr 22, 2017 20:07
[2017-04-22] MEDS: QUEtiapine 50 MG TABLET. PO SCH (20:28)
[2017-04-22] MEDS: INSULIN DETEMIR 300 UNITS/3 ML INSULN.PEN. SQ SCH (20:29)
[2017-04-22] MEDS: DONEPEZIL HCL 10 MG TABLET PO SCH (20:29)
[2017-04-22] MEDS: MIRTAZAPINE 7.5 MG TABLET. PO SCH (20:29)
[2017-04-23 06:02] VITALS: BP 157/48
--- NOTE | 2017-04-23 06:30 | PN ---
DATE: 04/20/2017 This is a late entry on 04/20/2017, covers elements not covered in my initial note on 04/20/2017. SUBJECTIVE: Met with the patient evening of 04/20/2017. The patient slept 6-1/4 hours previous evening. The daughter called. The patient is quite paranoid, suspicious, minimizing most of the problems, prompting admission. She was repetitive, asked to see me 2 or 3 times and forgotten what we talked in the previous conversations about her denial of circumstances prompting admission. REVIEW OF SYSTEMS: No CV, , pulmonary, eye, ENT system symptoms on review. Reliability varies. MENTAL STATUS EXAM: Oriented to herself and situation. Speech coherent, rapid at times. Abstraction fair, computation impaired, language function intact, attention span short, mood and affect anxious, labile. LABORATORY DATA: Reviewed. IMPRESSION: Major neurocognitive disorder, early Alzheimer, vascular with delusion, depression, psychotic disorder unspecified. Rest unchanged. PLAN: Increase Seroquel to 50 mg at bedtime. Rest psychotropics unchanged. MAN Ivette CONDE MD DR: ABEL/sascha JOB#: [id number] / [id number]
[2017-04-23] MEDS: INSULIN ASPART 300 UNITS/3 ML INSULN.PEN SQ SCH ×7 (07:30→19:42)
[2017-04-23] MEDS: FUROSEMIDE 20 MG TABLET PO SCH (09:10)
[2017-04-23] MEDS: LISINOPRIL 20 MG TABLET PO SCH (09:10)
[2017-04-23] MEDS: ASPIRIN ENTERIC COATED 325 MG TABLET.DR. PO SCH (09:10)
[2017-04-23] MEDS: ATENOLOL 50 MG TABLET PO SCH (09:11)
[2017-04-23] MEDS: SERTRALINE 50 MG TABLET. PO SCH (09:11)
[2017-04-23] MEDS: LACTOBACILLUS RHAMNOSUS GG 1 CAPSULE. PO SCH ×2 (09:11→19:42)
[2017-04-23] MEDS: amLODIPine BESYLATE 10 MG TABLET PO SCH (09:11)
[2017-04-23 15:53] VITALS: BP 135/55
[2017-04-23] MEDS: DONEPEZIL HCL 10 MG TABLET PO SCH (19:42)
[2017-04-23] MEDS: QUEtiapine 50 MG TABLET. PO SCH (19:42)
[2017-04-23] MEDS: MIRTAZAPINE 7.5 MG TABLET. PO SCH (19:42)
--- NOTE | 2017-04-23 19:58 | PDOC ---
Exam Note: Amaury Note: Please also refer to the separate dictated note~for this date of service dictated separately.~Patient seen individually. Discussed the patient with Nursing staff reviewed the chart.~Reviewed interim history and current functioning. Reviewed vital signs,~Labs/ Radiology~and current medications noted below. Continue current treatment with the changes noted in the dictated addendum note Assessment: Vital Signs: Vital Signs Date Time Temp Pulse Resp B/P (MAP) Pulse Ox O2 Delivery O2 Flow Rate FiO2 04/23/17 15:53 97.3 51 16 135/55 (81) 99 Room Air I&O Intake and Output 04/23/17 07:00 Intake Total 1080 ml Balance 1080 ml Intake Oral 1080 ml Labs: Laboratory Tests Test 04/23/17 02:53 04/23/17 08:05 04/23/17 12:13 04/23/17 16:34 Glucose (Fingerstick) 101 mg/dL (70-99) H 132 mg/dL (70-99) H 121 mg/dL (70-99) H 104 mg/dL (70-99) H Test 04/23/17 19:09 Glucose (Fingerstick) 212 mg/dL (70-99) H Current Medications: Meds: Current Medications Ciprofloxacin (Cipro) 500 mg 1X ONCE PO Last administered on 04/14/17at 17:25; Start 04/14/17 at 17:15; Stop 04/14/17 at 17:16; Status DC Donepezil HCl (Aricept) 10 mg HS PO Last administered on 04/23/17at 19:42; Start 04/15/17 at 21:00 Acetaminophen (Tylenol) 650 mg PRN Q6HRS PRN PO PAIN / TEMP; Start 04/14/17 at 23:00 Multi-Ingredient Ointment (Analgesic [place]) 1 gricel PRN QID PRN TP MUSCLE PAIN; Start 04/14/17 at 23:00 Al Hydroxide/Mg Hydroxide (Mylanta Plus Xs) 15 ml PRN AFTMEALHC PRN PO DYSPEPSIA; Start 04/14/17 at 23:00 Magnesium Hydroxide (Milk Of Magnesia) 2,400 mg PRN QHS PRN PO CONSTIPATION; Start 04/14/17 at 23:00 Ciprofloxacin (Cipro) 250 mg BID66 PO Last administered on 04/19/17at 17:56; Start 04/15/17 at 06:00; Stop 04/20/17 at 05:59; Status DC Lactobacillus Rhamnosus (Culturelle) 1 cap BID PO Last administered on at 19:42; Start 04/15/17 at 09:00 Amlodipine Besylate (Norvasc) 10 mg DAILY PO Last administered on 04/23/17at 09: 11; Start 04/15/17 at 09:00 Aspirin (Aspirin Enteric Coated) 325 mg DAILY PO Last administered on at 09:10; Start 04/15/17 at 09:00 Atenolol (Tenormin) 50 mg BID PO Last administered on 04/19/17at 09:00; Start at 09:00; Stop 04/19/17 at 19:38; Status DC Celecoxib (CeleBREX) 100 mg DAILY PO Last administered on 04/15/17at 09:30; Start 04/15/17 at 09:00; Stop 04/15/17 at 15:47; Status DC Insulin Aspart (NovoLOG) 6 units TIDWMEALS SQ Last administered on 04/15/17at 12: 18; Start 04/15/17 at 08:00; Stop 04/15/17 at 16:59; Status DC Loperamide HCl (Imodium) 2 mg PRN Q6HRS PRN PO DIARRHEA; Start 04/15/17 at 06:45 Nystatin (Nystop) 1 gricel PRN Q12HR PRN TP excoriation; Start 04/15/17 at 06:45 Lisinopril (Prinivil) 40 mg DAILY PO Last administered on 04/23/17at 09:10; Start 04/15/17 at 09:00 Hydrochlorothiazide (Microzide) 12.5 mg DAILY PO Last administered on at 08:54; Start 04/15/17 at 09:00; Stop 04/16/17 at 17:04; Status DC Insulin Detemir (Levemir) 45 units QHS SQ Last administered on 04/18/17at 19:25 ; Start 04/15/17 at 21:00; Stop 04/19/17 at 19:37; Status DC Clonidine HCl (Catapres Tts-1) 1 patch WEEKLY TD Last administered on at 08:10; Start 04/15/17 at 16:00 Insulin Aspart (NovoLOG) 8 units TIDWMEALS SQ Last administered on 04/23/17at 13 :09; Start 04/15/17 at 17:00 Insulin Aspart (NovoLOG) 0-5 UNITS QIDACHS SQ Last administered on 04/20/17at 17 :13; Start 04/15/17 at 21:00 Dextrose 12.5 gm PRN Q15MIN PRN IV SEE COMMENTS; Start 04/15/17 at 17:00 Sertraline HCl (Zoloft) 25 mg DAILY PO Last administered on 04/18/17at 08:07; Start 04/16/17 at 09:00; Stop 04/18/17 at 18:20; Status DC Mirtazapine (Remeron) 7.5 mg QHS PO Last administered on 04/23/17at 19:42; Start 04/15/17 at 21:00 Insulin Aspart (NovoLOG) 15 units 1X ONCE SQ Last administered on 04/15/17at 19: 45; Start 04/15/17 at 19:45; Stop 04/15/17 at 19:46; Status DC Furosemide (Lasix) 20 mg DAILY PO Last administered on 04/23/17at 09:10; Start 04/17/17 at 09:00 Quetiapine Fumarate (SEROquel) 25 mg QHS PO Last administered on 04/19/17at 20: 17; Start 04/17/17 at 21:00; Stop 04/20/17 at 19:05; Status DC Glucose (Insta-Glucose) 15 gm PRN Q15MIN PRN PO LOW BLOOD SUGAR Last administered on 04/18/17at 07:30; Start 04/18/17 at 07:30 Sertraline HCl (Zoloft) 50 mg DAILY PO Last administered on 04/23/17at 09:11; Start 04/19/17 at 09:00 Insulin Detemir (Levemir) 35 units QHS SQ Last administered on 04/21/17at 19:12 ; Start 04/19/17 at 21:00; Stop 04/22/17 at 15:58; Status DC Atenolol (Tenormin) 50 mg DAILY PO Last administered on 04/23/17at 09:11; Start 04/20/17 at 09:00 Quetiapine Fumarate (SEROquel) 50 mg QHS PO Last administered on 04/23/17at 19: 42; Start 04/20/17 at 21:00 Insulin Detemir (Levemir) 20 units QHS SQ ; Start 04/22/17 at 21:00 Active Scripts Active Reported Nystatin 15 Gm Powder 1 Gricel TP PRN Q12HR PRN Novolog Flexpen (Insulin Aspart) 100 Unit/1 Ml Insuln.pen 6 Unit SQ TIDWMEALS Lantus Solostar (Insulin Glargine,Hum.rec.anlog) 100 Unit/1 Ml Insuln.pen 45 Unit SQ HS Imodium A-D (Loperamide HCl) 2 Mg Capsule 2 Mg PO PRN Q6HRS PRN Hydrochlorothiazide Tablet (Hydrochlorothiazide) 12.5 Mg Tablet 12.5 Mg PO DAILY Donepezil Hcl 10 Mg Tablet 10 Mg PO HS Celebrex (Celecoxib) 100 Mg Capsule 100 Mg PO DAILY Benazepril Hcl 40 Mg Tablet 40 Mg PO DAILY Atenolol 50 Mg Tablet 50 Mg PO BID Aspirin Ec (Aspirin) 325 Mg Tablet. 325 Mg PO DAILY Amlodipine Besylate 10 Mg Tablet 10 Mg PO DAILY I have reviewed the current psychotropics carefully including drug interactions. Risk benefit ratio favors no change other than as noted in my dictated progress note. Diagnosis: Problems: (1) Dementia (2) Medical clearance for psychiatric admission (3) Anxiety disorder (4) Impulse control disorder (5) Dementia, vascular, with depression (6) Dementia, vascular, with delusions (7) Dementia in Alzheimer's disease with depression (8) Dementia in Alzheimer's disease with delusions ROSS CONDE MD Apr 23, 2017 19:58
[2017-04-23] MEDS: INSULIN DETEMIR 300 UNITS/3 ML INSULN.PEN. SQ SCH (22:34)
--- NOTE | 2017-04-24 03:34 | PN ---
DATE: 04/22/2017 This late entry, 04/22/2017 covers elements not covered in my initial note 04/22/2017, met with the patient in the evening of 04/22/2017. The patient slept 7-1/2 hours previous evening. She has been somewhat withdrawn, spends much time in her room, anxious regarding another patient's medical condition. Denies any problems that she has had that prompted hospitalization and I processed this with her again. REVIEW OF SYSTEMS: Ambulation impaired. No CV, , pulmonary, eye system symptoms on review. MENTAL STATUS EXAM: Reasonably oriented to place and situation. Short term memory is impaired. Speech coherent, abstraction fair, computation impaired, language function intact. Mood and affect somewhat dysphoric, anxious, at times labile. No suicidal or homicidal ideation. LABORATORY DATA: Reviewed. IMPRESSION: Major neurocognitive disorder, early Alzheimer, vascular with depression, delusions, major depressive disorder, recurrent. Rest unchanged. PLAN: Continue current psychotropics mentioned in my initial note. ROSS CONDE MD DR: ABEL/sascha JOB#: [id number] / [id number]
[2017-04-24 05:52] VITALS: BP 150/77
[2017-04-24] MEDS: INSULIN ASPART 300 UNITS/3 ML INSULN.PEN SQ SCH ×7 (07:30→20:21)
[2017-04-24] MEDS: LACTOBACILLUS RHAMNOSUS GG 1 CAPSULE. PO SCH ×2 (08:23→20:21)
[2017-04-24] MEDS: ATENOLOL 50 MG TABLET PO SCH (08:23)
[2017-04-24] MEDS: amLODIPine BESYLATE 10 MG TABLET PO SCH (08:23)
[2017-04-24] MEDS: ASPIRIN ENTERIC COATED 325 MG TABLET.DR. PO SCH (08:24)
[2017-04-24] MEDS: FUROSEMIDE 20 MG TABLET PO SCH (08:24)
[2017-04-24] MEDS: SERTRALINE 50 MG TABLET. PO SCH (08:24)
[2017-04-24] MEDS: LISINOPRIL 20 MG TABLET PO SCH (08:24)
--- NOTE | 2017-04-24 11:59 | PN ---
DATE: 04/21/2017 PSYCHIATRIC PROGRESS NOTE This is a late entry, 04/21/2017, covers elements not covered in my initial note of 04/21/2017, [facility]. Per nursing report, the patient has been cooperative with medications and assessment, participated in groups after lunch, very negative at mealtimes. Refusing shower on nightshift. Slept 4-3/4 hours previous evening. She continues to minimize denials, rationalized most of the behaviors prompting admission, I processed this with her several times the evening of 04/21/2017. REVIEW OF SYSTEMS: Ambulation impaired. No CV, , pulmonary, eye system symptoms on review. MENTAL STATUS EXAM: Oriented to herself, situation. Speech has some latency, coherent, rapid at times. Abstraction fair, computation impaired, language function intact, attention span short. Mood and affect somewhat anxious, labile. LABORATORY DATA: Reviewed. IMPRESSION: Major depressive disorder with psychotic features, major neurocognitive disorder, Alzheimer vascular with delusion, depression. Rest unchanged. PLAN: Continue psychotropics mentioned in my initial note, adjust further as clinically indicated. MAN Ivette CONDE MD DR: ABEL/sascha JOB#: [id number] / [id number]
[2017-04-24 15:57] VITALS: BP 136/58
--- NOTE | 2017-04-24 20:14 | PDOC ---
Exam Note: Amaury Note: Please also refer to the separate dictated note~for this date of service dictated separately.~Patient seen individually. Discussed the patient with Nursing staff reviewed the chart.~Reviewed interim history and current functioning. Reviewed vital signs,~Labs/ Radiology~and current medications noted below. Continue current treatment with the changes noted in the dictated addendum note Assessment: Vital Signs: Vital Signs Date Time Temp Pulse Resp B/P (MAP) Pulse Ox O2 Delivery O2 Flow Rate FiO2 04/24/17 15:57 97.5 57 18 136/58 (84) 98 Room Air I&O Intake and Output 04/24/17 07:00 Intake Total 1380 ml Balance 1380 ml Intake Oral 1380 ml Labs: Laboratory Tests Test 04/24/17 07:34 04/24/17 11:19 04/24/17 16:19 04/24/17 19:11 Glucose (Fingerstick) 111 mg/dL (70-99) H 172 mg/dL (70-99) H 106 mg/dL (70-99) H 150 mg/dL (70-99) H Current Medications: Meds: Current Medications Ciprofloxacin (Cipro) 500 mg 1X ONCE PO Last administered on 04/14/17at 17:25; Start 04/14/17 at 17:15; Stop 04/14/17 at 17:16; Status DC Donepezil HCl (Aricept) 10 mg HS PO Last administered on 04/23/17at 19:42; Start 04/15/17 at 21:00 Acetaminophen (Tylenol) 650 mg PRN Q6HRS PRN PO PAIN / TEMP; Start 04/14/17 at 23:00 Multi-Ingredient Ointment (Analgesic [place]) 1 gricel PRN QID PRN TP MUSCLE PAIN; Start 04/14/17 at 23:00 Al Hydroxide/Mg Hydroxide (Mylanta Plus Xs) 15 ml PRN AFTMEALHC PRN PO DYSPEPSIA; Start 04/14/17 at 23:00 Magnesium Hydroxide (Milk Of Magnesia) 2,400 mg PRN QHS PRN PO CONSTIPATION; Start 04/14/17 at 23:00 Ciprofloxacin (Cipro) 250 mg BID66 PO Last administered on 04/19/17at 17:56; Start 04/15/17 at 06:00; Stop 04/20/17 at 05:59; Status DC Lactobacillus Rhamnosus (Culturelle) 1 cap BID PO Last administered on at 08:23; Start 04/15/17 at 09:00 Amlodipine Besylate (Norvasc) 10 mg DAILY PO Last administered on 04/24/17at 08: 23; Start 04/15/17 at 09:00 Aspirin (Aspirin Enteric Coated) 325 mg DAILY PO Last administered on at 08:24; Start 04/15/17 at 09:00 Atenolol (Tenormin) 50 mg BID PO Last administered on 04/19/17at 09:00; Start at 09:00; Stop 04/19/17 at 19:38; Status DC Celecoxib (CeleBREX) 100 mg DAILY PO Last administered on 04/15/17at 09:30; Start 04/15/17 at 09:00; Stop 04/15/17 at 15:47; Status DC Insulin Aspart (NovoLOG) 6 units TIDWMEALS SQ Last administered on 04/15/17at 12: 18; Start 04/15/17 at 08:00; Stop 04/15/17 at 16:59; Status DC Loperamide HCl (Imodium) 2 mg PRN Q6HRS PRN PO DIARRHEA; Start 04/15/17 at 06:45 Nystatin (Nystop) 1 gricel PRN Q12HR PRN TP excoriation; Start 04/15/17 at 06:45 Lisinopril (Prinivil) 40 mg DAILY PO Last administered on 04/24/17at 08:24; Start 04/15/17 at 09:00 Hydrochlorothiazide (Microzide) 12.5 mg DAILY PO Last administered on at 08:54; Start 04/15/17 at 09:00; Stop 04/16/17 at 17:04; Status DC Insulin Detemir (Levemir) 45 units QHS SQ Last administered on 04/18/17at 19:25 ; Start 04/15/17 at 21:00; Stop 04/19/17 at 19:37; Status DC Clonidine HCl (Catapres Tts-1) 1 patch WEEKLY TD Last administered on at 08:10; Start 04/15/17 at 16:00 Insulin Aspart (NovoLOG) 8 units TIDWMEALS SQ Last administered on 04/24/17at 16 :51; Start 04/15/17 at 17:00 Insulin Aspart (NovoLOG) 0-5 UNITS QIDACHS SQ Last administered on 04/24/17at 11 :26; Start 04/15/17 at 21:00 Dextrose 12.5 gm PRN Q15MIN PRN IV SEE COMMENTS; Start 04/15/17 at 17:00 Sertraline HCl (Zoloft) 25 mg DAILY PO Last administered on 04/18/17at 08:07; Start 04/16/17 at 09:00; Stop 04/18/17 at 18:20; Status DC Mirtazapine (Remeron) 7.5 mg QHS PO Last administered on 04/23/17at 19:42; Start 04/15/17 at 21:00 Insulin Aspart (NovoLOG) 15 units 1X ONCE SQ Last administered on 04/15/17at 19: 45; Start 04/15/17 at 19:45; Stop 04/15/17 at 19:46; Status DC Furosemide (Lasix) 20 mg DAILY PO Last administered on 04/24/17at 08:24; Start 04/17/17 at 09:00 Quetiapine Fumarate (SEROquel) 25 mg QHS PO Last administered on 04/19/17at 20: 17; Start 04/17/17 at 21:00; Stop 04/20/17 at 19:05; Status DC Glucose (Insta-Glucose) 15 gm PRN Q15MIN PRN PO LOW BLOOD SUGAR Last administered on 04/18/17at 07:30; Start 04/18/17 at 07:30 Sertraline HCl (Zoloft) 50 mg DAILY PO Last administered on 04/24/17at 08:24; Start 04/19/17 at 09:00 Insulin Detemir (Levemir) 35 units QHS SQ Last administered on 04/21/17at 19:12 ; Start 04/19/17 at 21:00; Stop 04/22/17 at 15:58; Status DC Atenolol (Tenormin) 50 mg DAILY PO Last administered on 04/24/17at 08:23; Start 04/20/17 at 09:00 Quetiapine Fumarate (SEROquel) 50 mg QHS PO Last administered on 04/23/17at 19: 42; Start 04/20/17 at 21:00 Insulin Detemir (Levemir) 20 units QHS SQ Last administered on 04/23/17at 22:34 ; Start 04/22/17 at 21:00 Active Scripts Active Reported Nystatin 15 Gm Powder 1 Gricel TP PRN Q12HR PRN Novolog Flexpen (Insulin Aspart) 100 Unit/1 Ml Insuln.pen 6 Unit SQ TIDWMEALS Lantus Solostar (Insulin Glargine,Hum.rec.anlog) 100 Unit/1 Ml Insuln.pen 45 Unit SQ HS Imodium A-D (Loperamide HCl) 2 Mg Capsule 2 Mg PO PRN Q6HRS PRN Hydrochlorothiazide Tablet (Hydrochlorothiazide) 12.5 Mg Tablet 12.5 Mg PO DAILY Donepezil Hcl 10 Mg Tablet 10 Mg PO HS Celebrex (Celecoxib) 100 Mg Capsule 100 Mg PO DAILY Benazepril Hcl 40 Mg Tablet 40 Mg PO DAILY Atenolol 50 Mg Tablet 50 Mg PO BID Aspirin Ec (Aspirin) 325 Mg Tablet. 325 Mg PO DAILY Amlodipine Besylate 10 Mg Tablet 10 Mg PO DAILY I have reviewed the current psychotropics carefully including drug interactions. Risk benefit ratio favors no change other than as noted in my dictated progress note. Diagnosis: Problems: (1) Dementia (2) Medical clearance for psychiatric admission (3) Anxiety disorder (4) Impulse control disorder (5) Dementia, vascular, with depression (6) Dementia, vascular, with delusions (7) Dementia in Alzheimer's disease with depression (8) Dementia in Alzheimer's disease with delusions ROSS CONDE MD Apr 24, 2017 20:14
[2017-04-24] MEDS: DONEPEZIL HCL 10 MG TABLET PO SCH (20:20)
[2017-04-24] MEDS: MIRTAZAPINE 7.5 MG TABLET. PO SCH (20:20)
[2017-04-24] MEDS: QUEtiapine 50 MG TABLET. PO SCH (20:21)
[2017-04-24] MEDS: INSULIN DETEMIR 300 UNITS/3 ML INSULN.PEN. SQ SCH (20:23)
[2017-04-25] MEDS ORDERED: ACET500T68 PO (00:55)
[2017-04-25] MEDS ORDERED: DEXT31GE PO (00:58)
[2017-04-25] MEDS ORDERED: FURO-69 PO (00:59)
[2017-04-25] MEDS ORDERED: INSU100V31 SQ ×2 (01:00→11:09)
[2017-04-25] MEDS ORDERED: INSU100V13 SQ (01:02)
[2017-04-25] MEDS ORDERED: LISI40TA PO (01:09)
[2017-04-25] MEDS ORDERED: LACT1CAP21 PO (01:09)
[2017-04-25] MEDS ORDERED: MAG30ORA2 PO (01:14)
[2017-04-25] MEDS ORDERED: MAGN2400 PO (01:15)
[2017-04-25] MEDS ORDERED: METH29OI TP (01:17)
[2017-04-25] MEDS ORDERED: MIRT15TA3 PO (01:22)
[2017-04-25] MEDS ORDERED: QUET50TA5 PO (01:24)
[2017-04-25] MEDS ORDERED: SERT50TA8 PO (01:25)
[2017-04-25] MEDS ORDERED: CLON1PAT TD (01:27)
[2017-04-25 05:45] VITALS: BP 146/68
[2017-04-25] MEDS: INSULIN ASPART 300 UNITS/3 ML INSULN.PEN SQ SCH ×4 (07:30→12:02)
[2017-04-25] MEDS: FUROSEMIDE 20 MG TABLET PO SCH (08:26)
[2017-04-25] MEDS: LACTOBACILLUS RHAMNOSUS GG 1 CAPSULE. PO SCH (08:26)
[2017-04-25] MEDS: ASPIRIN ENTERIC COATED 325 MG TABLET.DR. PO SCH (08:26)
[2017-04-25] MEDS: ATENOLOL 50 MG TABLET PO SCH (08:26)
[2017-04-25 08:27] VITALS: BP 146/68
[2017-04-25] MEDS: LISINOPRIL 20 MG TABLET PO SCH (08:27)
[2017-04-25] MEDS: amLODIPine BESYLATE 10 MG TABLET PO SCH (08:27)
[2017-04-25] MEDS: SERTRALINE 50 MG TABLET. PO SCH (08:28)
--- NOTE | 2017-04-25 19:10 | PDOC ---
Exam Note: Amaury Note: Please also refer to the separate dictated note~for this date of service dictated separately.~Patient seen individually. Discussed the patient with Nursing staff reviewed the chart.~Reviewed interim history and current functioning. Reviewed vital signs,~Labs/ Radiology~and current medications noted below. Continue current treatment with the changes noted in the dictated addendum note Assessment: Vital Signs: Vital Signs Date Time Temp Pulse Resp B/P (MAP) Pulse Ox O2 Delivery O2 Flow Rate FiO2 04/25/17 08:27 58 146/68 04/25/17 05:45 97.8 18 96 04/24/17 15:57 Room Air I&O Intake and Output 04/25/17 07:00 Intake Total 1800 ml Balance 1800 ml Intake Oral 1800 ml # Bowel Movements 1 Labs: Laboratory Tests Test 04/24/17 19:11 04/25/17 07:50 04/25/17 11:15 Glucose (Fingerstick) 150 mg/dL (70-99) H 68 mg/dL (70-99) L 165 mg/dL (70-99) H Current Medications: Meds: Current Medications Ciprofloxacin (Cipro) 500 mg 1X ONCE PO Last administered on 04/14/17at 17:25; Start 04/14/17 at 17:15; Stop 04/14/17 at 17:16; Status DC Donepezil HCl (Aricept) 10 mg HS PO Last administered on 04/24/17at 20:20; Start 04/15/17 at 21:00; Stop 04/25/17 at 16:43; Status DC Acetaminophen (Tylenol) 650 mg PRN Q6HRS PRN PO PAIN / TEMP; Start 04/14/17 at 23:00; Stop 04/25/17 at 16:43; Status DC Multi-Ingredient Ointment (Analgesic [place]) 1 gricel PRN QID PRN TP MUSCLE PAIN; Start 04/14/17 at 23:00; Stop 04/25/17 at 16:43; Status DC Al Hydroxide/Mg Hydroxide (Mylanta Plus Xs) 15 ml PRN AFTMEALHC PRN PO DYSPEPSIA; Start 04/14/17 at 23:00; Stop 04/25/17 at 16:43; Status DC Magnesium Hydroxide (Milk Of Magnesia) 2,400 mg PRN QHS PRN PO CONSTIPATION; Start 04/14/17 at 23:00; Stop 04/25/17 at 16:43; Status DC Ciprofloxacin (Cipro) 250 mg BID66 PO Last administered on 04/19/17at 17:56; Start 04/15/17 at 06:00; Stop 04/20/17 at 05:59; Status DC Lactobacillus Rhamnosus (Culturelle) 1 cap BID PO Last administered on at 08:26; Start 04/15/17 at 09:00; Stop 04/25/17 at 16:43; Status DC Amlodipine Besylate (Norvasc) 10 mg DAILY PO Last administered on 04/25/17at 08: 27; Start 04/15/17 at 09:00; Stop 04/25/17 at 16:43; Status DC Aspirin (Aspirin Enteric Coated) 325 mg DAILY PO Last administered on at 08:26; Start 04/15/17 at 09:00; Stop 04/25/17 at 16:43; Status DC Atenolol (Tenormin) 50 mg BID PO Last administered on 04/19/17at 09:00; Start at 09:00; Stop 04/19/17 at 19:38; Status DC Celecoxib (CeleBREX) 100 mg DAILY PO Last administered on 04/15/17at 09:30; Start 04/15/17 at 09:00; Stop 04/15/17 at 15:47; Status DC Insulin Aspart (NovoLOG) 6 units TIDWMEALS SQ Last administered on 04/15/17at 12: 18; Start 04/15/17 at 08:00; Stop 04/15/17 at 16:59; Status DC Loperamide HCl (Imodium) 2 mg PRN Q6HRS PRN PO DIARRHEA; Start 04/15/17 at 06:45 ; Stop 04/25/17 at 16:43; Status DC Nystatin (Nystop) 1 gricel PRN Q12HR PRN TP excoriation; Start 04/15/17 at 06:45; Stop 04/25/17 at 16:43; Status DC Lisinopril (Prinivil) 40 mg DAILY PO Last administered on 04/25/17at 08:27; Start 04/15/17 at 09:00; Stop 04/25/17 at 16:43; Status DC Hydrochlorothiazide (Microzide) 12.5 mg DAILY PO Last administered on at 08:54; Start 04/15/17 at 09:00; Stop 04/16/17 at 17:04; Status DC Insulin Detemir (Levemir) 45 units QHS SQ Last administered on 04/18/17at 19:25 ; Start 04/15/17 at 21:00; Stop 04/19/17 at 19:37; Status DC Clonidine HCl (Catapres Tts-1) 1 patch WEEKLY TD Last administered on at 08:10; Start 04/15/17 at 16:00; Stop 04/25/17 at 16:43; Status DC Insulin Aspart (NovoLOG) 8 units TIDWMEALS SQ Last administered on 04/25/17at 11 :57; Start 04/15/17 at 17:00; Stop 04/25/17 at 16:43; Status DC Insulin Aspart (NovoLOG) 0-5 UNITS QIDACHS SQ Last administered on 04/25/17at 12 :02; Start 04/15/17 at 21:00; Stop 04/25/17 at 16:43; Status DC Dextrose 12.5 gm PRN Q15MIN PRN IV SEE COMMENTS; Start 04/15/17 at 17:00; Stop 04/25/17 at 16:43; Status DC Sertraline HCl (Zoloft) 25 mg DAILY PO Last administered on 04/18/17at 08:07; Start 04/16/17 at 09:00; Stop 04/18/17 at 18:20; Status DC Mirtazapine (Remeron) 7.5 mg QHS PO Last administered on 04/24/17at 20:20; Start 04/15/17 at 21:00; Stop 04/25/17 at 16:43; Status DC Insulin Aspart (NovoLOG) 15 units 1X ONCE SQ Last administered on 04/15/17at 19: 45; Start 04/15/17 at 19:45; Stop 04/15/17 at 19:46; Status DC Furosemide (Lasix) 20 mg DAILY PO Last administered on 04/25/17at 08:26; Start 04/17/17 at 09:00; Stop 04/25/17 at 16:43; Status DC Quetiapine Fumarate (SEROquel) 25 mg QHS PO Last administered on 04/19/17at 20: 17; Start 04/17/17 at 21:00; Stop 04/20/17 at 19:05; Status DC Glucose (Insta-Glucose) 15 gm PRN Q15MIN PRN PO LOW BLOOD SUGAR Last administered on 04/18/17at 07:30; Start 04/18/17 at 07:30; Stop 04/25/17 at 16:43 ; Status DC Sertraline HCl (Zoloft) 50 mg DAILY PO Last administered on 04/25/17at 08:28; Start 04/19/17 at 09:00; Stop 04/25/17 at 16:43; Status DC Insulin Detemir (Levemir) 35 units QHS SQ Last administered on 04/21/17at 19:12 ; Start 04/19/17 at 21:00; Stop 04/22/17 at 15:58; Status DC Atenolol (Tenormin) 50 mg DAILY PO Last administered on 04/25/17at 08:26; Start 04/20/17 at 09:00; Stop 04/25/17 at 16:43; Status DC Quetiapine Fumarate (SEROquel) 50 mg QHS PO Last administered on 04/24/17at 20: 21; Start 04/20/17 at 21:00; Stop 04/25/17 at 16:43; Status DC Insulin Detemir (Levemir) 20 units QHS SQ Last administered on 04/24/17at 20:23 ; Start 04/22/17 at 21:00; Stop 04/25/17 at 16:43; Status DC Active Scripts Active Reported Novolog (Insulin Aspart) 100 Unit/1 Ml Vial 0-5 Unit SQ QIDACHS For BG < 69 Follow Hypoglycemia Protocol BG 70-150 0 Units BG 151-200 2 units if eating 0 units if not eating or HS BG 201-250 3 units if eating 0 units if not eating or HS BG 251-300 4 units if eating 2 units if not eating or HS BG 301-350 5 units if eating 3 units if not eating or HS BG > 351 Call provider orders Clonidine Tts-1 (Clonidine) 1 Each Patch.tdwk 1 Patch TD WEEKLY Sertraline Hcl 50 Mg Tablet 50 Mg PO DAILY Seroquel (Quetiapine Fumarate) 50 Mg Tablet 50 Mg PO HS Mirtazapine 15 Mg Tablet 7.5 Mg PO HS Analgesic [place] (Methyl Salicylate/Menthol) 28 Gm Oint...g. 1 Gricel TP PRN QID PRN Milk Of Magnesia (Magnesium Hydroxide) 2,400 Mg/10 Ml Oral.susp 2,400 Mg PO PRN QHS PRN Mag-Al Plus Xs Suspension (Mag Hydrox/Al Hydrox/Simeth) 30 Ml Oral.susp 15 Ml PO PRN AFTMEALHC PRN Lisinopril 40 Mg Tablet 40 Mg PO DAILY Levemir (Insulin Detemir) 100 Unit/1 Ml Vial 20 Unit SQ HS Novolog (Insulin Aspart) 100 Unit/1 Ml Vial 8 Unit SQ TIDWMEALS Lasix (Furosemide) 20 Mg Tablet 20 Mg PO DAILY Insta-Glucose Gel (Dextrose/Dextrin/Maltose) 31 Gm Gel..gram. 15 Gm PO PRN PRN Acetaminophen 500 Mg Tablet 650 Mg PO PRN Q6HRS PRN MDD 4000mg Nystatin 15 Gm Powder 1 Gricel TP PRN Q12HR PRN Imodium A-D (Loperamide HCl) 2 Mg Capsule 2 Mg PO PRN Q6HRS PRN Donepezil Hcl 10 Mg Tablet 10 Mg PO HS Atenolol 50 Mg Tablet 50 Mg PO DAILY Aspirin Ec (Aspirin) 325 Mg Tablet. 325 Mg PO DAILY Amlodipine Besylate 10 Mg Tablet 10 Mg PO DAILY I have reviewed the current psychotropics carefully including drug interactions. Risk benefit ratio favors no change other than as noted in my dictated progress note. Diagnosis: Problems: (1) Dementia in Alzheimer's disease with delusions (2) Dementia in Alzheimer's disease with depression (3) Dementia, vascular, with delusions (4) Dementia, vascular, with depression (5) Impulse control disorder (6) Anxiety disorder ROSS CONDE MD Apr 25, 2017 19:10
--- NOTE | 2017-04-26 03:21 | PN ---
DATE: 04/23/2017 This late entry 04/23/2017 covers elements not covered in my initial note 04/23. Met with the patient evening of 04/23/2017. The patient slept 6-3/4 hours previous evening, somewhat withdrawn, quite obsessed about one of the other patients on the unit. She is not doing very well. At times, she gets confused, believes she is at work. REVIEW OF SYSTEMS: No CV, , pulmonary, eye, ENT system symptoms on review. MENTAL STATUS EXAMINATION: Oriented to herself, situation wanted to know the reasons prompting admission and I went through it in great detail with her. She totally denies anything like that happened. Abstraction fair, computation impaired, language function intact. Short term memory is impaired. Mood and affect remain somewhat anxious. No suicidal or homicidal ideation. LABORATORY DATA: Reviewed. IMPRESSION: Major neurocognitive disorder, early Alzheimer, vascular with delusion, depression, major depressive disorder with history of psychotic features, rest unchanged. PLAN: Continue psychotropics mentioned in my initial note. She is tolerating the increased Seroquel. ROSS CONDE MD DR: ABEL/sascha JOB#: [id number] / [id number]
--- NOTE | 2017-04-26 11:34 | PN ---
DATE: 04/24/2017 PSYCHIATRIC PROGRESS NOTE This is a late entry 04/24/2017, covers elements not covered in my initial note 04/24/2017. SUBJECTIVE: I met with the patient the evening of 04/24/2017 at length and staffed at treatment team meeting morning of 04/24/2017. On the SLUM scale she scores 19 indicative of significant cognitive deficits. She continues to deny all problems prompting admission. States the staff lied about her. I addressed this at great length with her. She has been withdrawn, slept 7 hours previous evening. Appetite 100%. REVIEW OF SYSTEMS: Ambulation impaired with walker. No CV, , pulmonary, eye, ENT system symptoms on review. MENTAL STATUS EXAM: Oriented to herself and situation. Speech coherent, has some latency. Abstraction fair, computation impaired, language function intact, attention span short. Mood and affect somewhat withdrawn. LABORATORY DATA: Reviewed. IMPRESSION: Major neurocognitive disorder, early Alzheimer, vascular with delusion, depression, major depressive disorder with psychotic features in partial remission. Rest unchanged. PLAN: Continue psychotropics mentioned in my initial note. Adjust further as clinically indicated. MAN Ivette CONDE MD DR: ABEL/sascha JOB#: [id number] / [id number]
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
== END 2017-04-25 16:00 | disposition home or self-care (01) | DRG 885 ==
LOC: ER 14:42 → GEROPSY 19:20
PROVIDERS: ADMIT Psychiatry & Neurology Psychiatry; ATTEND Psychiatry & Neurology Psychiatry
DX: F33.3 Major depressive disorder, recurrent, severe with psychotic symptoms (principal); E11.65 Type 2 diabetes mellitus with hyperglycemia; G30.9 Alzheimer's disease, unspecified; F01.51 Vascular dementia, unspecified severity, with behavioral disturbance; F02.81 Dementia in other diseases classified elsewhere, unspecified severity, with behavioral disturbance; N39.0 Urinary tract infection, site not specified; F41.9 Anxiety disorder, unspecified; F63.9 Impulse disorder, unspecified; I10 Essential (primary) hypertension; Z66 Do not resuscitate; G47.9 Sleep disorder, unspecified; G51.0 Bell's palsy; Z79.899 Other long term (current) drug therapy; R00.1 Bradycardia, unspecified; T44.7X5A Adverse effect of beta-adrenoreceptor antagonists, initial encounter; Y92.89 Other specified places as the place of occurrence of the external cause
CPT/HCPCS: 36415; 80053; 80061; 81001; 82306; 82607; 82947; 83036; 83735; 84436; 84443; 84480; 85025; 86593; 87086; 87186; 93005; J1815; 99285-25

== ENCOUNTER 2020-03-25 17:16 | Inpatient (IN) | payer MEDICARE, BC ==
[~2020-03-25] VITALS: Ht 162.6 cm; Wt 73.5 kg
[~2020-03-25 17:16] MED LIST: ACET500T68 PO; AMLO-187 PO; ASPI325T11 PO; ATEN50TA PO; BENA40TA3 PO; CELE100C PO; CLON1PAT TD; DEXT31GE5 PO; DONE10TA7 PO; FURO-69 PO; HYDR12.58 PO; INSU100I13 SQ; INSU100I17 SQ; INSU100V13 SQ; INSU100V31 SQ; LACT1CAP21 PO; LISI40TA PO; LOPE-101 PO; MAG30ORA2 PO; MAGN24003 PO; METH28OI2 TP; MIRT15TA3 PO; NYST15PO9 TP; QUET50TA5 PO; SERT50TA8 PO
--- NOTE | 2020-03-25 17:28 | PHYS DOC ---
Past History Past Medical History: Anxiety, Dementia, Diabetes, Hypertension (MERCEDESRAJENDRARosalindaKIMMIE Erick KUHN) Past Surgical History: Other (MERCEDESRAJENDRARosalindaKIMMIE Erick KUHN) Alcohol Use: None Drug Use: None (TRACYRosalindaKIMMIE ) General Adult EDM: Chief Complaint: SHORTNESS OF BREATH HPI: HPI: History obtained from EMS. Patient is an 85-year-old female past medical history significant for dementia, hypertension who presents with chief complaint of altered mental status. EMS was called to the patient's LD4 altered mental status and adult check. Upon arrival the patient was somnolent. Staff reported EMS that the patient is typically demented at baseline but much more conversive and alert. EMS states initial for a temperature of 92 on arrival. They state that she had a weak and thready radial pulse. They do report that she recently tested positive for coronavirus. No further history maintain at this time secondary to the patient's somnolence. GCS(10)E4V1M5 (MERCEDESRAJENDRARosalindaKIMMIE Erick KUHN) Review of Systems: Review of Systems: Review of symptoms unable to be obtained secondary the patient's dementia and acuity of condition (TRACYRosalindaKIMMIE Erick KUHN) Allergies: Allergies: Allergies Coded Allergies Type Severity Reaction Last Updated Verified No Known Drug Allergies 04/14/17 No (TRACYRosalindaKIMMIE Erick KUHN) Physical Exam: PE: Constitutional: Somnolent. HENT: Normocephalic, atraumatic, bilateral external ears normal, oropharynx dry no oral exudates, nose normal. [] Eyes: PERRLA, EOMI, conjunctiva normal, no discharge. [] Neck: Normal range of motion, no tenderness, supple, no stridor. [] Cardiovascular tachycardic. No murmurs or gallops noted. Delayed capillary refill. [] Lungs & Thorax: Rhonchorous breath sounds noted throughout. Audible cough noted. [] Abdomen: Bowel sounds normal, soft, no tenderness, no masses, no pulsatile masses. [] Skin: Cool, dry, no erythema, no rash. [] Back: No tenderness, no CVA tenderness. [] Extremities: No tenderness, no cyanosis, no clubbing, ROM intact, no edema. [] Neurologic: GCS (10) E4V1M5 (MERCEDESRAJENDRARosalindaKIMMIE Erick KUHN) Current Patient Data: Labs: Laboratory Tests Test 03/25/20 17:30 03/25/20 18:09 White Blood Count 15.9 x10^3/uL (4.0-11.0) Red Blood Count 5.63 x10^6/uL (3.50-5.40) Hemoglobin 16.0 g/dL (12.0-15.5) Hematocrit 50.9 % (36.0-47.0) Mean Corpuscular Volume 91 fL (79-100) Mean Corpuscular Hemoglobin 28 pg (25-35) Mean Corpuscular Hemoglobin Concent 31 g/dL (31-37) Red Cell Distribution Width 15.1 % (11.5-14.5) Platelet Count 317 x10^3/uL (140-400) Neutrophils (%) (Auto) 76 % (31-73) Lymphocytes (%) (Auto) 15 % (24-48) Monocytes (%) (Auto) 8 % (0-9) Eosinophils (%) (Auto) 0 % (0-3) Basophils (%) (Auto) 0 % (0-3) Neutrophils # (Auto) 12.1 x10^3uL (1.8-7.7) Lymphocytes # (Auto) 2.4 x10^3/uL (1.0-4.8) Monocytes # (Auto) 1.3 x10^3/uL (0.0-1.1) Eosinophils # (Auto) 0.0 x10^3/uL (0.0-0.7) Basophils # (Auto) 0.1 x10^3/uL (0.0-0.2) Sodium Level 158 mmol/L (136-145) Potassium Level 4.5 mmol/L (3.5-5.1) Chloride Level 116 mmol/L (98-107) Carbon Dioxide Level 20 mmol/L (21-32) Anion Gap 22 (6-14) Blood Urea Nitrogen 64 mg/dL (7-20) Creatinine 3.5 mg/dL (0.6-1.0) Estimated GFR (Cockcroft-Gault) 12.4 BUN/Creatinine Ratio 18 (6-20) Glucose Level 237 mg/dL (70-99) Lactic Acid Level 10.4 mmol/L (0.4-2.0) Calcium Level 11.5 mg/dL (8.5-10.1) Magnesium Level 3.1 mg/dL (1.8-2.4) Total Bilirubin 0.9 mg/dL (0.2-1.0) Aspartate Amino Transf (AST/SGOT) 101 U/L (15-37) Alanine Aminotransferase (ALT/SGPT) 41 U/L (14-59) Alkaline Phosphatase 96 U/L (46-116) Troponin I Quantitative 0.143 ng/mL (0-0.055) Total Protein 8.4 g/dL (6.4-8.2) Albumin 3.9 g/dL (3.4-5.0) Albumin/Globulin Ratio 0.9 (1.0-1.7) Urine Collection Type U cath Urine Color Yellow Urine Clarity Cloudy Urine pH 5.5 Urine Specific Rogers 1.020 Urine Protein 100 mg/dl (NEG-TRACE) Urine Glucose (UA) Neg mg/dL (NEG) Urine Ketones (Stick) Neg mg/dL (NEG) Urine Blood Mod (NEG) Urine Nitrite Neg (NEG) Urine Bilirubin Neg (NEG) Urine Urobilinogen Dipstick 0.2 mg/dL (0.2 mg/dL) Urine Leukocyte Esterase Mod (NEG) Urine RBC 6-10 /HPF (0-2) Urine WBC >40 /HPF (0-4) Urine Squamous Epithelial Cells Mod /LPF Urine Transitional Epithelial Cells Occ /LPF Urine Bacteria Many /HPF (0-FEW) Urine Hyaline Casts Occ /HPF Urine Granular Casts Occ /HPF Urine Mucus Slight /LPF Vital Signs: Vital Signs Date Time Temp Pulse Resp B/P (MAP) Pulse Ox O2 Delivery O2 Flow Rate FiO2 03/25/20 18:18 99.2 133 38 92/45 (61) 89 Nasal Cannula 2.0 (ANISA MONTILLA DO) EKG: EKG: [] (KIMMIE GARCIA DO) EKG: EKG ordered and interpreted by myself at 1814 hrs. as sinus rhythm at 89 bpm, prolonged IN interval at 266 otherwise unremarkable intervals, left axis deviation, no acute ischemic findings, no STEMI (ANISA MONTILLA DO) Radiology/Procedures: Radiology/Procedures: [] (KIMMIE GARCIA DO) Radiology/Procedures: EXAM: XR CHEST 1V 03/25/2020 5:58 PM CLINICAL INDICATION: Shortness of breath COMPARISON: None TECHNIQUE: AP upright view of the chest FINDINGS: The heart and mediastinum are normal. Lungs are well-expanded. There are mild airspace opacities at the lateral right lung base. No pleural effusion or pneumothorax. Severe right glenohumeral osteoarthrosis. IMPRESSION: Mild opacities at the lateral right lung base could be developing pneumonia, atelectasis, or aspiration. Electronically signed by: Cris Giron MD (03/25/2020 6:35 PM) [id number] (ANISA MONTILLA DO) Heart Score: Risk Factors: Risk Factors: DM, Current or recent (<one month) smoker, HTN, HLP, family history of CAD, obesity. Risk Scores: Score 0 - 3: 2.5% MACE over next 6 weeks - Discharge Home Score 4 - 6: 20.3% MACE over next 6 weeks - Admit for Clinical Observation Score 7 - 10: 72.7% MACE over next 6 weeks - Early Invasive Strategies (KIMMIE GARCIA DO) HEART Score for Chest Pain: HEART Score for Chest Pain Response (Comments) Value History Slighlty/Non-Suspicious 0 ECG Normal 0 Age > 65 2 Risk Factors >3 Risk Factors or Hx CAD 2 Troponin < Normal Limit 0 Total 4 Course & Med Decision Making: Course & Med Decision Making Pertinent Labs and Imaging studies reviewed. (See chart for details) [] Patient is an 85-year-old female who presents with chief complaint of altered mental status. She arrives via EMS from her assisted living facility. She is known to be Covid positive. Upon arrival the patient did have a blood pressure 91/47. Tachycardic. Patient's initial GCS (10) E4V1M5. Patient did have accompanying paperwork that specify that she has a DNR CODE STATUS. Per her DNR guidelines advanced resuscitation including cardiopulmonary resuscitation, chest compressions, assisted ventilations, intubation, defibrillation, administration of cardiotonic medications and other related medical procedures will be deferred. Patient will be resuscitated with fluids and antibiotics. Labs are pending at this time. I have signed out the patient's emergency department care to Dr. Montilla. We discussed the history, physical exam findings, completed and pending laboratory results and imaging studies. We have also discussed the current treatment plan and expected clinical course. Please refer to chart for the patient's remaining emergency department course, final disposition, and clinical impression(s). (KIMMIE GARCIA DO) Course & Med Decision Making Received comprehensive signout from off going physician I went and personally saw patient repeated certain aspects of history although this was limited and performed comprehensive physical exam. Entirety of ER work-up so far reviewed Patient in critical condition. She is suffering from COVID-19 infection and UTI which are likely sources of patient's severe sepsis. Patient responded to IV fluid resuscitation initially. Given severe electrolyte derangement and kidney injury, nephrology team at [facility] was called and case discussed. They agreed to aggressive fluid resuscitation as performed. D5W will be started for further rehydration IV antibiotics administered for pulmonary and urinary infections 1 mg/kg Lovenox administered for NSTEMI type II I discussed need for admission with hospitalist, Dr. Kunz, who agreed to admit patient into his care at [facility] in ICU setting Patient's daughter was contacted and updated on plan of care, she was amenable for patient admission for continued medical management Patient remains in critical condition but stabilized satisfactorily prior to ER transportation to [facility] for admission Critical Care Time This patient required critical care. Due to the fact that the patient required a significant amount of one on one physician - patient contact time, ordering and review of studies, arranging urgent treatment with development of a management plan, evaluation of patients response to treatment with frequent reassessments, and discussions with other providers this patient required critical care time i n excess of 30 minutes. Critical care time was indicated due to the inherent instability and/or potential for instability in this patient. The critical care time that is allocated to this patient is above and beyond any time spent on any other billable procedures performed on this patient. (ANISA MONTILLA DO) Dragon Disclaimer: Sharlene Disclaimer: This electronic medical record was generated, in whole or in part, using a voice recognition dictation system. (KIMMIE GARCIA DO) Departure Departure: Impression: Primary Impression: COVID-19 Additional Impressions: UTI (urinary tract infection) Severe sepsis Electrolyte disturbance VIKTORIYA (acute kidney injury) NSTEMI (non-ST elevated myocardial infarction) DNR (do not resuscitate) Disposition: ADMITTED INPT THIS HOSP Admitting Physician: Zain Kunz (ANISA MONTILLA DO) Condition: CRITICAL Referrals: ARTURO AVILA MD (PCP) KIMMIE GARCIA DO Mar 25, 2020 17:28 ANISA MONTILLA DO Mar 25, 2020 19:00
[2020-03-25] MEDS ORDERED: IV NORMAL SALINE 1,000ML 1,000 ML IV ONE (17:30)
[2020-03-25] MEDS ORDERED: VANCOMYCIN 2.5 GM in IV NORMAL SALINE 500ML 500 ML IV ONE (17:30)
[2020-03-25] MEDS ORDERED: MORPHINE SULFATE 4 MG/ML DISP.SYRIN. IV ONE (17:30)
[2020-03-25] MEDS ORDERED: PIPERACILLIN/TAZOBACTAM 3.375 GM VIAL IV ONE (17:38)
[2020-03-25] MEDS ORDERED: IV NORMAL SALINE 50ML 50 ML ONE (17:38)
[2020-03-25 17:53] LABS: BASO # 0.1 x10^3/uL (0.0-0.2); BASO % 0 % (0-3); EOS % 0 % (0-3); HEMATOCRIT 50.9 % (36.0-47.0); LYMPH # 2.4 x10^3/uL (1.0-4.8); LYMPH % 15 % (24-48); MEAN CORPUSCULAR HEMOGLOBIN 28 pg (25-35); MEAN CORPUSCULAR HGB CONC 31 g/dL (31-37); MEAN CORPUSCULAR VOLUME 91 fL (79-100); MONO # 1.3 x10^3/uL (0.0-1.1); MONO % 8 % (0-9); NEUT # 12.1 x10^3uL (1.8-7.7); NEUT % 76 % (31-73); PLATELET COUNT 317 x10^3/uL (140-400); RED BLOOD COUNT 5.63 x10^6/uL (3.50-5.40); RED CELL DISTRIBUTION WIDTH 15.1 % (11.5-14.5); WHITE BLOOD COUNT 15.9 x10^3/uL (4.0-11.0)
[2020-03-25] MEDS ORDERED: VANCOMYCIN 1.75 GM in IV NORMAL SALINE 500ML 500 ML IV ONE (18:00)
[2020-03-25] MEDS ORDERED: PIPERACILLIN/TAZOBACTAM 3.375 GM in IV NORMAL SALINE 50ML 50 ML IV ONE (18:00)
[2020-03-25 18:04] LABS: CALCIUM 11.5 mg/dL (8.5-10.1); CREATININE 3.5 mg/dL (0.6-1.0); GFR 12.4; POTASSIUM 4.5 mmol/L (3.5-5.1)
--- NOTE | 2020-03-25 18:08 | EKG ---
[address] [address] Test Date: 2020-03-25 Test Time: 18:04:39 Pat Name: HUMBERTO DEE Department: Room: Gender: F Risk Consultant: : 1935 Requested By: KIMMIE GARCIA Order Number: [id number] Reading MD: Measurements Intervals Lena Rate: 89 P: 244 NM: 266 QRS: -25 QRSD: 76 T: 18 QT: 366 QTc: 452 Interpretive Statements SINUS RHYTHM PROLONGED NM INTERVAL LEFTWARD AXIS R-S TRANSITION ZONE IN V LEADS DISPLACED TO THE LEFT ABNORMAL ECG RI6.02 No previous ECG available for comparison
[2020-03-25 18:10] LABS: ALBUMIN 3.9 g/dL (3.4-5.0); ALBUMIN/GLOBULIN RATIO 0.9 (1.0-1.7); MAGNESIUM 3.1 mg/dL (1.8-2.4); TOTAL BILIRUBIN 0.9 mg/dL (0.2-1.0); TOTAL PROTEIN 8.4 g/dL (6.4-8.2)
[2020-03-25 18:32] LABS: BILIRUBIN,URINE NEG (NEG); CLARITY,URINE CLOUDY; COLOR,URINE YELLOW; GLUCOSE,URINE NEG (NEG)
[2020-03-25 18:33] LABS: NITRITE,URINE NEG (NEG); UROBILINOGEN,URINE 0.2 mg/dL (0.2 mg/dL)
[2020-03-25 18:34] LABS: BACTERIA,URINE MANY /HPF (0-FEW); GRANULAR CASTS,URINE OCC /HPF; HYALINE CASTS, URINE OCC /HPF; SQUAMOUS EPITHELIAL CELL,UR MOD /LPF; WBC,URINE >40 /HPF (0-4)
--- NOTE | 2020-03-25 18:38 | RAD ---
EXAM: XR CHEST 1V 03/25/2020 5:58 PM CLINICAL INDICATION: Shortness of breath COMPARISON: None TECHNIQUE: AP upright view of the chest FINDINGS: The heart and mediastinum are normal. Lungs are well-expanded. There are mild airspace opa cities at the lateral right lung base. No pleural effusion or pneumothorax. Severe right glenohumeral osteoarthrosis. IMPRESSION: Mild opacities at the lateral right lung base could be developing pneumonia, atelectasis, or aspiration. Electronically signed by: Cris Giron MD (03/25/2020 6:35 PM) [id number]
[2020-03-25 18:58] LABS: % BANDS 2 % (0-9); % LYMPHS 19 % (24-48); % MONOS 5 % (0-10); % SEGS 74 % (35-66); PLT ESTIMATE ADEQUATE (ADEQUATE)
[2020-03-25] MEDS ORDERED: ENOXAPARIN ** NOTE DOSE ** SYRINGE SQ ONE (19:00)
[2020-03-25] MEDS ORDERED: VANCOMYCIN 1 GM VIAL. ONE (19:10)
[2020-03-25] MEDS ORDERED: IV NORMAL SALINE 500ML 500 ML ONE (19:10)
[2020-03-25] MEDS ORDERED: IV DEXTROSE 5% 100 ML IV ONE (19:30)
[2020-03-25 21:53] VITALS: BP 119/89
[2020-03-25] MEDS: IV DEXTROSE 5% 1,000 ML IV SCH (22:30)
[2020-03-26 03:19] VITALS: BP 113/72
[2020-03-26] MEDS ORDERED: TRAM50TA PO (03:50)
[2020-03-26] MEDS ORDERED: MIRT-37 PO (03:50)
[2020-03-26] MEDS ORDERED: INSU100C SQ (03:50)
[2020-03-26] MEDS ORDERED: LACT1CAP2 PO (03:50)
[2020-03-26] MEDS ORDERED: DOXY100T PO (03:50)
[2020-03-26] MEDS ORDERED: SERT100T PO (03:50)
[2020-03-26] MEDS ORDERED: MELA5TAB20 PO (03:50)
[2020-03-26] MEDS ORDERED: ASPI-630 PO (03:50)
[2020-03-26] MEDS ORDERED: POTA20PI2 IV (03:50)
[2020-03-26 08:15] LABS: BASO % 0 % (0-3); EOS % 0 % (0-3); HEMATOCRIT 45.5 % (36.0-47.0); HEMOGLOBIN 14.3 g/dL (12.0-15.5); LYMPH # 1.6 x10^3/uL (1.0-4.8); LYMPH % 11 % (24-48); MEAN CORPUSCULAR HEMOGLOBIN 28 pg (25-35); MEAN CORPUSCULAR HGB CONC 31 g/dL (31-37); MEAN CORPUSCULAR VOLUME 90 fL (79-100); MONO # 0.4 x10^3/uL (0.0-1.1); MONO % 3 % (0-9); NEUT % 85 % (31-73); PLATELET COUNT 142 x10^3/uL (140-400); RED BLOOD COUNT 5.07 x10^6/uL (3.50-5.40)
[2020-03-26] MEDS: PIPERACILLIN/TAZOBACTAM 2.25 GM in IV NORMAL SALINE 50ML 50 ML IV SCH ×2 (08:30→14:18)
[2020-03-26 08:32] LABS: ALBUMIN/GLOBULIN RATIO 0.9 (1.0-1.7); CREATININE 4.6 mg/dL (0.6-1.0); POTASSIUM 4.3 mmol/L (3.5-5.1); TOTAL BILIRUBIN 0.6 mg/dL (0.2-1.0); TOTAL PROTEIN 6.4 g/dL (6.4-8.2)
[2020-03-26] MEDS ORDERED: NYSTATIN TOPICAL POWDER 15GM BOTTLE. TP SCH (09:00)
[2020-03-26 10:42] VITALS: BP 109/54
[2020-03-26] MEDS: IV DEXTROSE 5% 1,000 ML IV SCH ×2 (14:20→16:57)
--- NOTE | 2020-03-26 14:40 | HP ---
ADMIT DATE: 03/25/2020 HISTORY OF PRESENT ILLNESS: The patient is an 85-year-old female patient, a resident at [facility], who was brought to the Emergency Room by the emergency medical service personnel with altered mental status. Upon arrival, the patient was somnolent. Staff reported today EMS that the patient is typically demented at baseline, but much more conversive and alert. Her initial temperature was 92 on arrival. They stated that she had a weak and thready radial pulse. They do report that she recently tested positive for coronavirus. No further history available at this time secondary to the patient's somnolence. She was extensively investigated in the Emergency Room and has had lab work as well as imaging studies. Her lab work showed that she has leukocytosis. Her white cell count 15,900. Her chemistry showed that she has either chronic or acute on chronic kidney injury with marked hypernatremia and hypercalcemia. Her lactic acid was high at 10.4 and her urinalysis showed that she has moderate amount of leukocyte esterase, 6-10 rbc's, and more than 40 wbc's, and too many bacteria. The patient was admitted with sepsis, severe hypernatremia, acute kidney injury, elevated troponin, and obviously COVID-19 pneumonia. Her chest x-ray showed mild opacities at the lateral right lung base, could be developing pneumonia, atelectasis, aspiration. The patient was started on IV fluid in the form of D5W as well as piperacillin/tazobactam at 2.25 grams IV every 8 hours, together with fentanyl citrate for pain as she was moaning and groaning. PAST MEDICAL HISTORY: Significant for obviously COVID-19 infection, type 2 diabetes mellitus. She has hypertension, generalized osteoarthritis, anxiety disorder, muscle weakness, difficulty walking, obsessive compulsive disorder, major depressive disorder, and unspecified dementia. PAST SURGICAL HISTORY: Unobtainable. FAMILY HISTORY: Noncontributory. SOCIAL HISTORY: She is a resident at [facility]. She apparently does not smoke, drink alcohol, or use recreational drugs. ALLERGIES: She has no known drug allergies. MEDICATIONS: She is currently on following medications: She is on doxycycline 100 mg twice a day, Aricept 10 mg at bedtime, clonidine TTS 1 patch topically weekly, atenolol 50 mg once a day, amlodipine besylate 10 mg once a day, lisinopril 40 mg once a day, aspirin 325 mg once a day, analgesic balm applied topically 4 times a day, tramadol 50 mg every 6 hours, acetaminophen 650 mg every 6 hours, mirtazapine 7.5 mg at bedtime, sertraline 50 mg daily, and she is on quetiapine fumarate 50 mg at bedtime, and potassium chloride 20 mEq twice a day. She is on furosemide 20 mg once a day. She is on [id number] Insta-Glucose gel 15 grams as needed. She is on Mylanta 15 mL after meals and as needed, lactobacillus acidophilus 1 capsule twice a day, loperamide 2 mg every 6 hours as needed, milk of magnesia 30 mL p.o. daily p.r.n. for constipation. She is on NovoLog insulin 8 units before meals, NovoLog as insulin sliding scale, and she is also on detemir insulin 20 units at bedtime. She is on nystatin powder applied topically twice a day and melatonin 5 mg at bedtime. PHYSICAL EXAMINATION: GENERAL: On arrival to the Emergency Room, the patient was apparently somnolent. There was no pallor, jaundice, cyanosis, or thyromegaly. No jugular venous distention. No lower limb edema. VITAL SIGNS: Her heart rate was 133, blood pressure was 92/45, temperature 99.2, respiratory rate was 38, and oxygen saturation was 89% on 2 liters of oxygen. HEAD, EYES, EARS, NOSE AND THROAT: Showed normocephalic, atraumatic. NECK: Supple. HEART: Showed normal first and second heart sounds. No gallop, rub, or murmur. CHEST: Clear to auscultation. No crepitation or rhonchi. ABDOMEN: Scaphoid, soft, and nontender. NEUROLOGIC: She was somnolent, but arousable. She mumbles some words. She seemed to be able to move all her extremities spontaneously without any difficulty. LABORATORY DATA: Her lab work on arrival showed serum sodium was 158, potassium 4.5, chloride 116, bicarbonate 20, and anion gap of 22. Her BUN of 64, creatinine 3.5, and estimated GFR was 12 mL per minute. Her glucose was 137. Lactic acid was 10.4, calcium was 11.5, and magnesium was 3.1. Total bilirubin, AST, ALT, and alkaline phosphatase were normal. Her first set of cardiac enzymes, troponin was 0.413. Total protein was 8.4, albumin was 3.9. Her white cell count was 15,900, hemoglobin 16, hematocrit 51, MCV 91, and platelet count 317,000 with normal manual differential. Urinalysis showed the urine was yellow, cloudy with a pH of 5.5, and specific gravity of 1.020, though the urine protein was large about 100 mg/dL; however, the urine was negative for glucose, ketones, moderate amount of blood, negative for nitrite. There was moderate amount of leukocyte esterase, 6-10 rbc's, more than 40 wbc's, and many bacteria. IMAGING: Her chest x-ray showed the heart and mediastinum are normal. Lungs are well expanded. There are mild airspace opacities at the lateral right lung base. No pleural effusion or pneumothorax. Severe right glenohumeral osteoarthritis with the impression is that the patient has mild airspace opacities at the lateral right lung base, could be developing pneumonia, atelectasis, aspiration. ASSESSMENT AND PLAN: The patient was admitted with COVID-19 pneumonia, acute hypoxic respiratory failure, urinary tract infection with severe sepsis and lactic acidosis, acute kidney injury, hypernatremia, non-ST segment elevation myocardial infarction. She is a DNR. The patient was started on D5W at 150 mL per hour. She was also started on Zosyn 2.25 grams IV every 8 hours, fentanyl citrate 25 mcg IV every 3 hours. We will obviously monitor her closely and decide further management. Her overall prognosis is poor and we might have to discuss the goals of care with the family as she is probably a hospice appropriate. MELI BEASLEY MD DR: TERESO/sascha JOB#: [id number] / [id number]
[2020-03-26 15:16] VITALS: BP 86/44
[2020-03-26 20:44] VITALS: BP 104/54
--- NOTE | 2020-03-26 22:52 | PN ---
DATE: 03/26/2020 SUBJECTIVE: The patient is resting flat in bed, in no apparent respiratory distress. She continued to be confused, nonverbal. Nursing staff stated that her urine output is decreasing. PHYSICAL EXAMINATION: GENERAL: When I examined her, she looked pale, no jaundice, cyanosis or thyromegaly. No jugular venous distention. No limb edema. VITAL SIGNS: Her heart rate was 69, blood pressure was 109/54, temperature 98.2, respiratory rate 22, and oxygen saturation was 98% on 2 liters of oxygen. HEAD, EYES, EARS, NOSE AND THROAT: Showed normocephalic, atraumatic. NECK: Supple. HEART: Normal first and second heart sounds. No gallop, rub or murmur. CHEST: Clear to auscultation. No crepitation or rhonchi. ABDOMEN: Scaphoid, soft, nontender. NEUROLOGIC: She is demented without any obvious lateralizing sign. She moves all extremities spontaneously. She had an indwelling Rob catheter. Her intake and output were incompletely recorded. LABORATORY DATA: Her lab work this morning showed her white cell count slightly down at 14,000, hemoglobin 14, hematocrit 45, MCV 90, and platelet count of 142,000 with normal manual differential. Her chemistry though showed that her serum sodium is coming down slowly at 155, potassium 4.3, chloride 117, bicarbonate 19, anion gap of 19, BUN 81 and her creatinine has risen further to 4.6. Her estimated GFR was 9 mL per minute. Her glucose was 322, lactic acid is down to 2.2, calcium was 9. Total bilirubin and alkaline phosphatase is normal. AST, ALT dramatically risen. Her third set of troponin was 1.592. Total protein was 6.4, albumin 3. Her urine and blood culture is still pending. ASSESSMENT: This is an 85-year-old female patient, a resident at [facility], who was admitted with COVID-19 infection, acute hypoxic respiratory failure. She has also acute kidney injury with worsening BUN and creatinine, hypernatremia improving slowly, sepsis, urinary tract infection, lactic acidosis, for which she is on IV antibiotic. She has non-ST segment elevation myocardial infarction and hypernatremia. The patient's overall prognosis is extremely poor. We will contact her family to consider hospice care. MELI BEASLEY MD DR: Tam JOB#: [id number] / [id number]
== END 2020-03-26 21:42 | disposition hospice, inpatient (51) | DRG 871 ==
LOC: ER 17:16 → 1 SOUTH 18:40
PROVIDERS: ADMIT Internal Medicine; ATTEND Internal Medicine
DX: A41.89 Other specified sepsis (principal); I21.4 Non-ST elevation (NSTEMI) myocardial infarction; J12.89 Other viral pneumonia; J96.01 Acute respiratory failure with hypoxia; U07.1 COVID-19; E87.0 Hyperosmolality and hypernatremia; N17.9 Acute kidney failure, unspecified; N39.0 Urinary tract infection, site not specified; E11.9 Type 2 diabetes mellitus without complications; F03.90 Unspecified dementia, unspecified severity, without behavioral disturbance, psychotic disturbance, mood disturbance, and anxiety; F42.9 Obsessive-compulsive disorder, unspecified; I10 Essential (primary) hypertension; M15.9 Polyosteoarthritis, unspecified; R65.20 Severe sepsis without septic shock; Z66 Do not resuscitate; F32.9 Major depressive disorder, single episode, unspecified; F41.9 Anxiety disorder, unspecified; Z79.899 Other long term (current) drug therapy
CPT/HCPCS: 36415; 71045; 80053; 81001; 82947; 83605; 83735; 84484; 85007; 85025; 87040; 87086; 93005; 96365; 96367; 96372; 96375; 99291; J1650; J2060; J2270; J2543; J3010; J3370; J7040; J7030